=== PATIENT | male | born 1955 | race Caucasian/White ===

== ENCOUNTER 2020-09-29 06:27 | Inpatient (IN) ==
[2020-09-29] MEDS ORDERED: guaiFENesin 600 MG TABCR PO STA (07:08)
[2020-09-29] MEDS ORDERED: DEXAMETHASONE SOD INJ 10 MG/ML VIAL IV ONE (07:08)
[2020-09-29] MEDS ORDERED: ALBUT/IPRATROP 3MG/0.5MG NEB 3 ML VIAL NEB ONE (07:08)
[2020-09-29] MEDS ORDERED: ACETAMINOPHEN 1,000 MG/100 ML VIAL IV STA (07:09)
[2020-09-29] MEDS ORDERED: SODIUM CHLORIDE 0.9% 1000ML 1,000 ML IV ONE (07:10)
[2020-09-29 07:20] LABS: Eosinophils # (auto) 0.01 K/uL (0-0.5); Eosinophils % (auto) 0.3 %; Hematocrit (blood only) 31.9 % (42-52); Hemoglobin 10.4 g/dL (14.0-18.0); Lymphocytes # (auto) 0.55 K/uL (1.2-3.4); Lymphocytes % (auto) 15.9 %; Mean Corpuscular Hemoglobin 30.6 pg (25-34); Mean Corpuscular Hgb Conc 32.6 g/dL (32-36); Mean Corpuscular Volume 93.8 fL (80-100); Mean Platelet Volume 11.4 fL (7.4-10.4); Monocytes # (auto) 0.17 K/uL (0.11-0.59); Monocytes % (auto) 4.9 %; Neutrophils # (auto) 2.74 K/uL (1.4-6.5); Neutrophils % (auto) 78.9 %; Platelet Count 108 K/uL (130-400); RDW Coefficient of Variation 16.3 % (11.5-14.5); RDW Standard Deviation 56.3 fL (36.4-46.3); White Blood Count 3.47 K/uL (4.8-10.8)
[2020-09-29 07:39] LABS: D Dimer 880 ug/L FEU (0-500)
[2020-09-29 07:41] LABS: Oxygen Saturation VBG 76.3 %; pH VBG 7.46 (7.36-7.41)
[2020-09-29 07:46] LABS: Albumin Globulin Ratio 0.7 (0.9-2); Albumin Level 2.9 gm/dl (3.4-5.0); BUN Creatinine Ratio 4.4 (10-20); Bilirubin Direct 0.1 mg/dl (0-0.2); Bilirubin,Total 0.4 mg/dl (0.2-1); Calcium 7.4 mg/dl (8.5-10.1); Est GFR (African American) 6.9; Magnesium 1.7 mg/dl (1.8-2.4); Phosphorus 4.1 mg/dl (2.5-4.9); Potassium 3.4 mmol/L (3.5-5.1); Total Protein 6.9 gm/dl (6.4-8.2); Troponin I 0.088 ng/ml (0-0.045)
--- NOTE | 2020-09-29 08:01 | Emergency Department Note ---
Impression & Plan Acute respiratory failure with hypoxia, Pneumonia due to COVID-19 virus, Hypomagnesemia, Hypokalemia, End stage renal disease on dialysis ED Provider Note NAME: ERIS MCGOWAN AGE: 65 SEX: M ARRIVES VIA: Ambulance INFORMANT: Patient, ED PROVIDER(S): Raghav Ross MD CHIEF COMPLAINT: Cough PLAN: Disposition: Admit MEDICAL DECISION MAKING: The patient is a pleasant 65-year-old gentleman with a past medical history of end-stage renal disease on dialysis who presents emergency department with worsening cough after he diagnosed as Covid positive on 09/26 following the development of cough and fever. Patient did have his first Covid19 Vaccination on 09/22. The patient was noted to be hypoxic to 68% on room air on arrival in place with 100% nonrebreather. The patient denied any significant shortness of breath despite this. He denies any chest pain, nausea, vomiting, diarrhea. He reports body aches. His is also in the emergency room today with Covid- like symptoms though she has yet to be diagnosed. He denies missing any hemodialysis sessions but was recently switched from MWF schedule to TRS after his Covid19 diagnosis and is scheduled for HD tomorrow. He reports he has been on HD for approximately 2 years but still urinates several times a day. On arrival, the patient is uncomfortable, ill-appearing but no acute distress, temp 37.6, hypoxic to 68% on RA and tachypneic in mid 30s with mild work of breathing. BP stable. He appears clinically dry with cap refill 2+s. Mild shantel- oral cyanosis. Lungs with diminished BS of lower lung chamorro with scant wheeze. EKG with nonspecific ST abnormality without overt ST elevation or depression. CXR c/w multifocal PNA. WBC 3.4 with lymphopenia at 0.55. H/H 10.4/31.9 and Platelets 100K without recent for comparison. VBG unremarkable. Chemistry without acidosis though c/w h/o ESRD with Cr. 8.5 and BUN 37. Magnesium 1.7 with repletion provided. Potassium3.4. Otherwise no significant abnormalities. LFTs unremarkable. Troponin 0.088 in the setting of ESRD and hypoxia. BNP 8K, nonspecific in the setting of ESRD. Patient with improved WOB following IVF hydration, dexam ethasone, guafenesin, Duoneb. D-dimer was 880 but in the setting of ESRD. CTA considered however given patient still does urinate and symptoms can been explained by his Covid19 PNA, will defer at this time I discussed findings and concern for significant hypoxia with the patient and he did agree with plan for admission. I updated the patient's with the patient's permission. Case was discussed with Dr. Parrish, [facility] hospitalist, who will evaluate the patient for admission. Triage Nursing notes reviewed and agree them. Additional history obtained from EMs Prior medical records reviewed Vital Signs: reviewed and remarkable for hypoxia. Differential diagnosis: Reactive airway disease, pneumonia, pneumothorax, COPD, CHF, infections, cardiac ischemia, pulmonary embolism, musculoskeletal, gastrointestinal, as well as other pathologies. ER treatment provided: See below. Diagnostics interpreted by me: ECG: NSR, 89 bpm, no ectopy, nonspecific ST abnormality, no overt ST elevation or depression. Cardiac Monitoring: An order for continuous cardiac monitoring was placed and demonstrated NSR, 89 bpm, no ectopy. Laboratory studies: See below Imaging studies: XR chest 1V portable CLINICAL HISTORY: Atypical chest pain COMPARISON STUDY: No previous studies for comparison. FINDINGS: The heart is the upper limits of normal in size. There are bilateral multifocal airspace opacities suspicious for multifocal pneumonia. Correlation with Covid 19 testing is suggested. No pleural effusions are evident.[ IMPRESSION: Multifocal airspace opacity suspicious for a multifocal pneumonia. Consultation(s): Case was discussed with Dr. Parrish, [facility] hospitalist, who will evaluate the patient for admission. HPI: The patient is a pleasant 65-year-old gentleman with a past medical history of end-stage renal disease on dialysis who presents emergency department with worsening cough after he diagnosed as Covid positive on 09/26 following the development of cough and fever. Patient did have his first Covid19 Vaccination on 09/22. The patient was noted to be hypoxic to 68% on room air on arrival in place with 100% nonrebreather. The patient denied any significant shortness of breath despite this. He denies any chest pain, nausea, vomiting, diarrhea. He reports body aches. His is also in the emergency room today with Covid- like symptoms though she has yet to be diagnosed. He denies missing any hemodial ysis sessions but was recently switched from MWF schedule to TRS after his Covid19 diagnosis and is scheduled for HD tomorrow. He reports he has been on HD for approximately 2 years but still urinates several times a day. ROS: See above HPI for pertinent positives & negatives. A total of 10 systems reviewed and were otherwise negative. PAST MEDICAL HISTORY:See Below PAST SURGICAL HISTORY:See Below FAMILY HISTORY:See Below SOCIAL HISTORY:See Below HOME MEDICATIONS:See Below ALLERGIES:See Below VITALS:See Below PHYSICAL EXAMINATION: GENERAL: Awake, alert, ill-appearing, in no distress HENT: Normocephalic, atraumatic. Oropharynx with dry mucous membranes and otherwise unremarkable. EYES: Normal conjunctiva. Sclera non-icteric. NECK: Supple. No nuchal rigidity. FROM. No JVD. RESPIRATORY: Diminished BS of lower lung chamorro with scant wheeze. Tachypneic with mild increase WOB. CARDIAC: Regular rate, normal rhythm. Pulses equal. Cap refill 2+s. Mild shantel- oral cyanosis. Right upper arm AV fistula with palpable bruit. ABDOMEN: Soft, non-distended. No tenderness to palpation. No rebound or guarding. No masses. RECTAL: Deferred. MUSCULOSKELETAL: Chest examination reveals no tenderness. The back is symmetrical on inspection without obvious abnormality. There is no CVA tenderness to palpation. No joint edema. LOWER EXTREMITIES: Calves are equal size bilaterally and non-tender. No edema. No discoloration. NEURO: Normal sensorium. No sensory or motor deficits noted. SKIN: No rash or jaundice noted. ED COURSE: Critical Care: I have personally spent greater than 45 minutes of critical care time in the direct management of this patient. This includes bedside care, interpretation of diagnostic studies, and testing, discussion with consultants, patient, and family members, and other required patient management activities. This 45 minutes is in excess of all separately billable procedures. Raghav Ross MD Past Med/Surg History Medical History A-V fistula Anemia Diabetes mellitus Diabetic peripheral neuropathy Diabetic proliferative retinopathy End stage renal disease on dialysis HTN (hypertension) Liver mass Morbid obesity with BMI of 40.0-44.9, adult Secondary hyperparathyroidism of renal origin Surgical History S/P arteriovenous (AV) fistula creation RUE Family History Father , age 77 Black lung disease Mother , age 84 Myocardial infarction Social History Smoking Status: Never smoker Hx Alcohol Use: No Hx Substance Use: No Preferred Language: Macedonian Communication Ability: Effective Microsoft Architect Required: No Beliefs That Will Affect Care: None marital status: Current Living Situation: Spouse Current Living Situation Comment: lives in [facility] current occupational status: retired current occupation: worked for [employer] How many Children do You have: 1 How many Children do You have Comment: 1 son Feels Safe at Home: Yes Assistive Devices: Oxygen - Continuous Allergies Allergies Allergy/AdvReac Type Severity Reaction Status Date / Time No Known Drug Allergies Allergy Unknown Verified 09/29/20 06:51 Home Meds Home Medications Medication Instructions Recorded Confirmed amlodipine 10 mg tablet 10 mg PO DAILY tab 03/07/19 09/29/20 clonidine HCl 0.1 mg tablet 0.1 mg PO BID tab 03/07/19 09/29/20 pantoprazole 40 mg tablet,delayed 40 mg PO DAILY tab 03/07/19 09/29/20 release pen needle, diabetic 32 gauge x #10 ea 03/07/19 04/17/20" vitamin B comp no.3-folic acid 1 1 tab PO DAILY 03/07/19 09/29/20 mg-vit C 60 mg-biotin 300 mcg tablet sevelamer carbonate 800 mg tablet 800 mg PO TID 07/05/19 09/29/20 hydralazine 50 mg tablet 50 mg PO BID tab 04/17/20 09/29/20 furosemide 40 mg PO BID 09/29/20 09/29/20 Previous Rx's Medication Instructions Recorded Tresiba FlexTouch U-100 100 14 unit SQ DAILY #15 ml NS 07/01/20 unit/mL (3 mL) subcutaneous pen Results & Data (ED) Vital Signs Vital Signs - 24 hr 09/29/20 06:34 09/29/20 06:36 09/29/20 06:38 Temperature 37.6 C H Temperature Source Oral Pulse Rate 89 Pulse Rate [Right Finger] Pulse Rate from SpO2 Sensor 89 Respiratory Rate 20 30 H 32 H Respiratory Effort / Characteristics Non-Labored Respiratory Depth Shallow Blood Pressure 147/68 H Blood Pressure Mean 94 Pulse Oximetry 86 L 88 L 93 Oxygen Delivery Method Room Air Nasal Cannula Non-rebreather Oxygen Flow Rate 4 5 15 Sepsis Recent Fever Within 48 Hours No Sepsis New/Unexplained Change in Mental Status No Sepsis Action Taken by Nursing No Action Required 09/29/20 06:40 09/29/20 06:45 09/29/20 07:00 Temperature Temperature Source Pulse Rate 88 86 89 Pulse Rate [Right Finger] Pulse Rate from SpO2 Sensor 88 86 89 Respiratory Rate 33 H 28 H 36 H Respiratory Effort / Characteristics Respiratory Depth Blood Pressure 149/69 H 157/68 H 144/77 H Blood Pressure Mean 95 97 99 Pulse Oximetry 93 95 94 Oxygen Delivery Method Non-rebreather Non-rebreather Non-rebreather Oxygen Flow Rate 15 15 15 Sepsis Recent Fever Within 48 Hours Sepsis New/Unexplained Change in Mental Status Sepsis Action Taken by Nursing 09/29/20 07:08 09/29/20 07:15 09/29/20 07:31 Temperature Temperature Source Pulse Rate 86 85 Pulse Rate [Right Finger] 88 Pulse Rate from SpO2 Sensor 85 Respiratory Rate 30 H 28 H 20 Respiratory Effort / Characteristics Non-Labored Spontaneous Respiratory Depth Blood Pressure 142/74 H Blood Pressure Mean 96 Pulse Oximetry 98 96 97 Oxygen Delivery Method Non-rebreather Non-rebreather Non-rebreather Oxygen Flow Rate 15 15 15 Sepsis Recent Fever Within 48 Hours Sepsis New/Unexplained Change in Mental Status Sepsis Action Taken by Nursing 09/29/20 07:46 09/29/20 08:00 09/29/20 08:15 Temperature Temperature Source Pulse Rate 92 H 100 H 105 H Pulse Rate [Right Finger] Pulse Rate from SpO2 Sensor 93 H 102 H 106 H Respiratory Rate 34 H 31 H 26 H Respiratory Effort / Characteristics Respiratory Depth Blood Pressure 148/90 H 147/70 H 134/55 L Blood Pressure Mean 109 95 81 Pulse Oximetry 92 94 93 Oxygen Delivery Method Nebulizer Nebulizer Nebulizer Oxygen Flow Rate Sepsis Recent Fever Within 48 Hours Sepsis New/Unexplained Change in Mental Status Sepsis Action Taken by Nursing 09/29/20 08:30 09/29/20 08:45 09/29/20 09:00 Temperature Temperature Source Pulse Rate 109 H 109 H 107 H Pulse Rate [Right Finger] Pulse Rate from SpO2 Sensor 109 H 119 H 107 H Respiratory Rate 29 H 38 H 22 Respiratory Effort / Characteristics Respiratory Depth Blood Pressure 126/63 117/52 L 103/55 L Blood Pressure Mean 84 73 71 Pulse Oximetry 89 L 90 88 L Oxygen Delivery Method Oxymask Oxymask Oxymask Oxygen Flow Rate 10 10 10 Sepsis Recent Fever Within 48 Hours Sepsis New/Unexplained Change in Mental Status Sepsis Action Taken by Nursing 09/29/20 09:15 09/29/20 09:30 09/29/20 09:45 Temperature Temperature Source Pulse Rate 104 H 106 H 106 H Pulse Rate [Right Finger] Pulse Rate from SpO2 Sensor 104 H 106 H 106 H Respiratory Rate 23 28 H 27 H Respiratory Effort / Characteristics Respiratory Depth Blood Pressure 101/47 L 117/48 L 119/52 L Blood Pressure Mean 65 71 74 Pulse Oximetry 93 92 89 L Oxygen Delivery Method Oxymask Oxymask Oxymask Oxygen Flow Rate 10 10 10 Sepsis Recent Fever Within 48 Hours Sepsis New/Unexplained Change in Mental Status Sepsis Action Taken by Nursing 09/29/20 10:00 Temperature Temperature Source Pulse Rate 103 H Pulse Rate [Right Finger] Pulse Rate from SpO2 Sensor 103 H Respiratory Rate 24 Respiratory Effort / Characteristics Respiratory Depth Blood Pressure 110/52 L Blood Pressure Mean 71 Pulse Oximetry 88 L Oxygen Delivery Method Oxymask Oxygen Flow Rate 10 Sepsis Recent Fever Within 48 Hours Sepsis New/Unexplained Change in Mental Status Sepsis Action Taken by Nursing Laboratory Data Attestation: I reviewed the patient's lab results. Result diagrams: 09/29/20 06:40 09/29/20 06:40 Lab Results 09/29/20 09/29/20 09/29/20 Range/Units 06:40 06:40 06:40 WBC 3.47 L (4.8-10.8) K/uL RBC 3.40 L (4.7-6.1) M/uL Hgb 10.4 L (14.0-18.0) g/dL Hct 31.9 L (42-52) % MCV 93.8 (80-100) fL MCH 30.6 (25-34) pg MCHC 32.6 (32-36) g/dL RDW Std Deviation 56.3 H (36.4-46.3) fL RDW Coeff of Anny 16.3 H (11.5-14.5) % Plt Count 108 L (130-400) K/uL MPV 11.4 H (7.4-10.4) fL Immature Gran % (Auto) 0.0 % Neut % (Auto) 78.9 % Lymph % (Auto) 15.9 % [place] % (Auto) 4.9 % Eos % (Auto) 0.3 % Baso % (Auto) 0.0 % Neut # (Auto) 2.74 (1.4-6.5) K/uL Lymph # (Auto) 0.55 L (1.2-3.4) K/uL [place] # (Auto) 0.17 (0.11-0.59) K/uL Eos # (Auto) 0.01 (0-0.5) K/uL Baso # (Auto) 0.00 (0-0.2) K/uL Immature Gran # (Auto) 0.00 (0.00-0.02) K/uL D-Dimer 880 H* (0-500) ug/L FEU VBG pH (7.36-7.41) VBG pCO2 (38-50) mmHg VBG pO2 mmHg VBG HCO3 mmol/L VBG O2 Saturation % VBG Base Excess mEq/L Barometric Pressure mm/Hg Sodium 135 L (136-145) mmol/L Potassium 3.4 L (3.5-5.1) mmol/L Chloride 94 L (98-107) mmol/L Carbon Dioxide 27 (21-32) mmol/L Anion Gap 14.0 H (3-11) BUN 37 H (7-18) mg/dl Creatinine 8.50 H* (0.6-1.4) mg/dl Est Cr Clr Drug Dosing 11.0 ml/min Est GFR ( Amer) 6.9 Est GFR (Non-Af Amer) 6.0 BUN/Creatinine Ratio 4.4 L (10-20) Glucose 208 H (70-99) mg/dl Calcium 7.4 L (8.5-10.1) mg/dl Phosphorus 4.1 (2.5-4.9) mg/dl Magnesium 1.7 L (1.8-2.4) mg/dl Total Bilirubin 0.4 (0.2-1) mg/dl Direct Bilirubin 0.1 (0-0.2) mg/dl AST 35 (15-37) U/L ALT 22 (12-78) U/L Alkaline Phosphatase 80 (45-117) U/L Total Creatine Kinase 278 (39-308) U/L Troponin I 0.088 H* (0-0.045) ng/ml NT-Pro-B Natriuret Pep 8318 H (0-900) pg/ml Total Protein 6.9 (6.4-8.2) gm/dl Albumin 2.9 L (3.4-5.0) gm/dl Globulin 4.0 (2.5-4.0) gm/dl Albumin/Globulin Ratio 0.7 L (0.9-2) Lipase 128 (73-393) U/L Procalcitonin 09/29/20 09/29/20 Range/Units 07:25 07:29 WBC (4.8-10.8) K/uL RBC (4.7-6.1) M/uL Hgb (14.0-18.0) g/dL Hct (42-52) % MCV (80-100) fL MCH (25-34) pg MCHC (32-36) g/dL RDW Std Deviation (36.4-46.3) fL RDW Coeff of Anny (11.5-14.5) % Plt Count (130-400) K/uL MPV (7.4-10.4) fL Immature Gran % (Auto) % Neut % (Auto) % Lymph % (Auto) % [place] % (Auto) % Eos % (Auto) % Baso % (Auto) % Neut # (Auto) (1.4-6.5) K/uL Lymph # (Auto) (1.2-3.4) K/uL [place] # (Auto) (0.11-0.59) K/uL Eos # (Auto) (0-0.5) K/uL Baso # (Auto) (0-0.2) K/uL Immature Gran # (Auto) (0.00-0.02) K/uL D-Dimer (0-500) ug/L FEU VBG pH 7.46 H (7.36-7.41) VBG pCO2 43 (38-50) mmHg VBG pO2 41 mmHg VBG HCO3 29 mmol/L VBG O2 Saturation 76.3 % VBG Base Excess 5.0 mEq/L Barometric Pressure 736.5 mm/Hg Sodium (136-145) mmol/L Potassium (3.5-5.1) mmol/L Chloride (98-107) mmol/L Carbon Dioxide (21-32) mmol/L Anion Gap (3-11) BUN (7-18) mg/dl Creatinine (0.6-1.4) mg/dl Est Cr Clr Drug Dosing ml/min Est GFR ( Amer) Est GFR (Non-Af Amer) BUN/Creatinine Ratio (10-20) Glucose (70-99) mg/dl Calcium (8.5-10.1) mg/dl Phosphorus (2.5-4.9) mg/dl Magnesium (1.8-2.4) mg/dl Total Bilirubin (0.2-1) mg/dl Direct Bilirubin (0-0.2) mg/dl AST (15-37) U/L ALT (12-78) U/L Alkaline Phosphatase (45-117) U/L Total Creatine Kinase (39-308) U/L Troponin I (0-0.045) ng/ml NT-Pro-B Natriuret Pep (0-900) pg/ml Total Protein (6.4-8.2) gm/dl Albumin (3.4-5.0) gm/dl Globulin (2.5-4.0) gm/dl Albumin/Globulin Ratio (0.9-2) Lipase (73-393) U/L Procalcitonin Cancelled Administered Medications Albuterol (Albuterol Hfa 8 Gm Inhaler) 1 puffs INH QIDR [facility] Stop: 10/29/20 18:59 Last Admin: 09/29/20 19:17 Dose: 1 puffs Documented by: [id number] Admin: 09/29/20 15:57 Dose: 1 puffs Documented by: [id number] Doxycycline Hyclate (Doxycycline Hyclate 100 Mg Cap) 100 mg PO BID [facility] Stop: 10/06/20 13:59 Last Admin: 09/29/20 14:49 Dose: 100 mg Documented by: [id number] Heparin Sodium (Porcine) (Heparin Sod 5,000 Unit/0.5 Ml Vial) 7,500 units SQ Q8 [facility] Stop: 10/29/20 13:59 Last Admin: 09/29/20 14:51 Dose: 7,500 units Documented by: [id number] Ceftriaxone Sodium 2,000 mg/ (Dextrose) 70 mls @ 100 mls/hr IV DAILY@1400 [facility]XIE; Protocol Stop: 10/06/20 13:59 Last Infusion: 09/29/20 16:41 Dose: 0 mls/hr Documented by: [id number] Admin: 09/29/20 15:45 Dose: 100 mls/hr Documented by: [id number] Insulin Human Regular 250 (units/ Sodium Chloride) 250 mls @ 4.8 mls/hr IV .Q24H TRIXIE; Protocol Stop: 10/29/20 16:59 Last Titration: 09/29/20 20:02 Dose: 5.8 units/hr, 5.8 mls/hr Documented by: [id number] Cosigned by: [id number] Titration: 09/29/20 19:10 Dose: 4.8 units/hr, 4.8 mls/hr Documented by: [id number] Cosigned by: [id number] Titration: 09/29/20 19:04 Dose: 4 units/hr, 4 mls/hr Documented by: [id number] Cosigned by: [id number] Titration: 09/29/20 18:09 Dose: 4 units/hr, 4 mls/hr Documented by: [id number] Cosigned by: [id number] Admin: 09/29/20 17:03 Dose: 3.3 units/hr, 3.3 mls/hr Documented by: [id number] Cosigned by: [id number] Insulin Aspart (Insulin Aspart 100 Units/Ml 3 Ml Pen) 0 units SC ACHS [facility] Stop: 10/29/20 16:29 Last Admin: 09/29/20 17:51 Dose: Not Given Documented by: [id number] Ipratropium Mermentau (Ipratropium [place] Hfa Inhaler) 1 puffs INH QIDR [facility] Stop: 10/29/20 18:59 Last Admin: 09/29/20 19:16 Dose: 1 puffs Documented by: [id number] Admin: 09/29/20 15:58 Dose: 1 puffs Documented by: [id number] Sevelamer HCl (Sevelamer Hcl 800 Mg Tablet) 1,600 mg PO AC [facility] Stop: 10/29/20 13:19 Last Admin: 09/29/20 17:53 Dose: 1,600 mg Documented by: [id number] Admin: 09/29/20 13:19 Dose: Not Given Documented by: [id number] Discontinued Medications Acetaminophen (Acetaminophen 325 Mg Tab) 650 mg PO PRE-TREAT ONE Stop: 09/29/20 11:26 Last Admin: 09/29/20 14:47 Dose: 650 mg Documented by: [id number] Albuterol (Albut/Ipratrop 3mg/0.5mg Neb 3 Ml Vial) 12 ml NEB ONE ONE Stop: 09/29/20 07:09 Last Admin: 09/29/20 07:26 Dose: 12 ml Documented by: [id number] Albuterol (Albut/Ipratrop 3mg/0.5mg Neb 3 Ml Vial) 3 ml NEB QIDR [facility] Stop: 10/29/20 11:29 Last Admin: 09/29/20 15:17 Dose: Not Given Documented by: [id number] Admin: 09/29/20 11:47 Dose: 3 ml Documented by: [id number] Dexamethasone (Dexamethasone Sod Inj 10 Mg/Ml Vial) 10 mg IV NOW ONE Stop: 09/29/20 07:09 Last Admin: 09/29/20 07:30 Dose: 10 mg Documented by: [id number] Guaifenesin (Guaifenesin 600 Mg Tabcr) 600 mg PO NOW STA Stop: 09/29/20 07:09 Last Admin: 09/29/20 07:25 Dose: 600 mg Documented by: [id number] Acetaminophen (Ofirmev) 1,000 mg in 100 mls @ 400 mls/hr IV NOW STA Stop: 09/29/20 07:23 Last Infusion: 09/29/20 07:56 Dose: 0 mls/hr Documented by: [id number] Admin: 09/29/20 07:31 Dose: 400 mls/hr Documented by: [id number] Sodium Chloride (Nss 1000ml) 1,000 mls @ 999 mls/hr IV .Q1H1M ONE Stop: 09/29/20 08:10 Last Infusion: 09/29/20 08:12 Dose: 0 mls/hr Documented by: [id number] Admin: 09/29/20 07:30 Dose: 999 mls/hr Documented by: [id number] Magnesium Sulfate/Dextrose (Magnesium Sulfate / D5w) 1 gm in 100 mls @ 100 mls/hr IV NOW STA Stop: 09/29/20 09:35 Last Infusion: 09/29/20 10:56 Dose: 0 mls/hr Documented by: [id number] Admin: 09/29/20 10:20 Dose: 100 mls/hr Documented by: [id number] Sodium Chloride (Nss) 250 mls @ 999 mls/hr IV .Q16M ONE Stop: 09/29/20 10:31 Last Infusion: 09/29/20 10:56 Dose: 0 mls/hr Documented by: [id number] Admin: 09/29/20 10:35 Dose: 999 mls/hr Documented by: [id number] Insulin Human Regular 3.5 (units/ Syringe) 3.5 mls @ 30 mls/min IV NOW ONE Stop: 09/29/20 17:01 Last Admin: 09/29/20 17:03 Dose: 30 mls/min Documented by: [id number] Cosigned by: [id number] Insulin Aspart (Insulin Aspart 100 Units/Ml 3 Ml Pen) 0 units SC ACHS [facility] Stop: 10/29/20 11:29 Last Admin: 09/29/20 12:16 Dose: 13 units Documented by: [id number] Cosigned by: [id number] Insulin Glargine (Insulin Glargine Solostar 100 Units/Ml 3 Ml Pen) 15 units SC BID [facility] Stop: 10/29/20 11:44 Last Admin: 09/29/20 12:17 Dose: 15 units Documented by: [id number] Cosigned by: [id number] Miscellaneous (Insulin Protocol Goal Range ) 1 ea N/A ONE ONE Stop: 09/29/20 16:00 Last Admin: 09/29/20 17:11 Dose: 1 ea Documented by: [id number] Miscellaneous (Severe Stress Level ) 1 ea N/A ONE ONE Stop: 09/29/20 16:00 Last Admin: 09/29/20 17:11 Dose: 1 ea Documented by: [id number] Miscellaneous Information (Dc All Previously Ordered Diabetes Meds) 1 ea N/A ONE ONE Stop: 09/29/20 16:00 Last Admin: 09/29/20 17:13 Dose: Not Given Documented by: [id number] Potassium Chloride (Potassium Chloride Crtab 20 Meq Tabcr) 20 meq PO NOW STA Stop: 09/29/20 09:54 Last Admin: 09/29/20 10:25 Dose: 20 meq Documented by: [id number] Discharge Plan Visit Data Chief Complaint: Cough ED Provider: Raghav Ross Discharge Problem: Acute respiratory failure with hypoxia, Pneumonia due to COVID-19 virus, Hypomagnesemia, Hypokalemia, End stage renal disease on dialysis Patient Disposition: Admitted As Inpatient Discharge Instructions Interventions: ED Discharge Assessment Last Done: 09/29/20 11:01
--- NOTE | 2020-09-29 08:15 | XRay Report ---
XR chest 1V portable CLINICAL HISTORY: Atypical chest pain COMPARISON STUDY: No previous studies for comparison. FINDINGS: The heart is the upper limits of normal in size. There are bilateral multifocal airspace op acities suspicious for multifocal pneumonia. Correlation with Covid 19 testing is suggested. No pleur al effusions are evident.[ IMPRESSION: Multifocal airspace opacity suspicious for a multifocal pneumonia. ACT 112: Negative or not required by law. Electronically signed by: Roc Gonzalez M.D. 09/29/2020 8:14 AM
[2020-09-29] MEDS ORDERED: MAGNESIUM SULFATE / D5W 1 GM/100 ML BAG IV STA (08:36)
[2020-09-29] MEDS ORDERED: POTASSIUM CHLORIDE CRTAB 20 MEQ TABCR PO STA (09:53)
--- NOTE | 2020-09-29 10:14 | History & Physical Report ---
Date of Service September 29, 2020 Assessment & Plan (1) Pneumonia due to COVID-19 virus: Severe disease. s/p decadron x 10mg in ER. Complete decadron course - 9 additional days of 6mg qd starting tomorrow. He is a convalescent plasma candidate. He is about 5/6 days into his illness. He did receive 1 dose of the COVID-19 vaccine but unfortunately is likely not producing an antibody response to the vaccine for another week or so. Risks/benefits of plasma discussed. FDA information sheet given. Consent obtained. T/Screen. Then Tx plasma when available from blood bank. Unfortunately he is NOT a candidate for remdesivir given his ESRD. Pulm toilet. Self-proning encouraged. Flutter valve. Bronchodilators. (2) Acute respiratory failure with hypoxia: 2nd to severe COVID-19 pneumonia. His procalcitonin did come back elevated. Due to slight chance that he has bacterial superinfection - start rocephin 2gm daily and doxy 100mg BID. Follow cultures. This afternoon, after admission to COVID unit, patient experienced escalating O2 requirements. Repeat VBG with mildly elevated pCO2. I spoke with Dr Montoya - difficult to know if he experienced some volume overload from the plasma. Or, more likely, this is worsening hypoxia from COVID. Low threshold for BIPAP if any worsening through the night. (3) Morbid obesity with BMI of 40.0-44.9, adult: (4) Pancytopenia: Likely 2nd to bone marrow suppression from COVID-19. CBC in am. CKD/ESRD likely contributes to anemia as well. (5) Diabetes mellitus: Due to steroid initiation for COVID-19 his BSGs are markedly elevated. Hold basal-bolus insulin SC. Start insulin drip, severe stress, per protocol. Check a1c. (6) HTN (hypertension): BPs soft at time of admission, likely volume depletion in setting of COVID-19 and recent anorexia. Did receive NS in ER. Hold lasix. Hold hydralazine. Hold amlodipine. Cont clonidine to prevent rebound. (7) End stage renal disease on dialysis: M/W/F schedule as outpatient - dialyzes in [place]. Primary citrus picker is Dr Choe. Spoke several times with Dr Montoya. Given escalating O2 requirements following plasma infusion we elected to performed urgent dialysis in the event he was experiencing pulm edema in the setting of plasma transfusion. Appreciate Dr Montoya's assistance. 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 (8) Hypokalemia: 20meq KCL x 1 repeat BMP am (9) Hypomagnesemia: Mag sulfate 1gm x 1 repeat mag in am 2nd to poor PO intake and diarrhea (10) DVT prophylaxis: given high risk of VTE w/ COVID- heparin 7500 units TID extensively updated by phone this evening History of Present Illness Chief Complaint: COVID-19 infection Primary Care Provider: Tomy Cervantes 65yo male with ESRD on HD x 2 years - secondary to long-standing T2DM with nephropathy - HTN, obesity, and T2DM presents with ongoing COVID-19 infection x 5-6 days. Patient states he was in his usual state of health up until coming down with COVID. On 09/22/2020 the patient received his first dose of COVID-19 vaccine. The day following the vaccination he developed fever to 101, diarrhea, fatigue, anorexia, and mild dry cough. His got sick with similar symptoms either just prior to him or about the same time but she did NOT receive the vaccine. The patient continued to feel poorly all last week. Temperatures continued to range 99-100 degrees. Dry cough remained, anorexia persisted, fatigue/malaise continued, and he also had myalgias. Has never had chest pain, abdominal pain, nausea, emesis, headache, ear pain, sore throat, nasal congestion, or loss of taste/smell. On Tuesday, 09/26, he went to an urgent care in [place] for COVID-19 testing. He found out later that night he was positive for COVID-19. He typically dialyzes on Tuesday/Tue/Tuesday but due to COVID-19 illness he dialyzed in [place] on Tuesday. He admits to drinking very little since his illness began. In the ER he was hypoxic to the 60s in room air. O2 sats improved to low 90s with oxymask. He amazingly did not have dyspnea during my visit. He admits to feeling very anxious about having COVID and asked several times "if he was going to make it." Allergies Allergy/AdvReac Type Severity Reaction Status Date / Time No Known Drug Allergies Allergy Unknown Verified 09/29/20 06:51 Home Medications Medication Instructions Recorded Confirmed Type amlodipine 10 mg tablet 10 mg PO DAILY tab 03/07/19 09/29/20 History clonidine HCl 0.1 mg tablet 0.1 mg PO BID tab 03/07/19 09/29/20 History pantoprazole 40 mg tablet,delayed 40 mg PO DAILY tab 03/07/19 09/29/20 History release pen needle, diabetic 32 gauge x #10 ea 03/07/19 04/17/20 History " vitamin B comp no.3-folic acid 1 1 tab PO DAILY 03/07/19 09/29/20 History mg-vit C 60 mg-biotin 300 mcg tablet sevelamer carbonate 800 mg tablet 800 mg PO TID 07/05/19 09/29/20 History hydralazine 50 mg tablet 50 mg PO BID tab 04/17/20 09/29/20 History Tresiba FlexTouch U-100 100 14 unit SQ DAILY #15 ml NS 07/01/20 09/29/20 Rx unit/mL (3 mL) subcutaneous pen furosemide 40 mg PO BID 09/29/20 09/29/20 History Past Med/Surg History Medical History A-V fistula Anemia Diabetes mellitus Diabetic peripheral neuropathy Diabetic proliferative retinopathy End stage renal disease on dialysis HTN (hypertension) Liver mass Morbid obesity with BMI of 40.0-44.9, adult Secondary hyperparathyroidism of renal origin Surgical History S/P arteriovenous (AV) fistula creation RUE Family History Father , age 77 Black lung disease Mother , age 84 Myocardial infarction Social History Smoking Status: Never smoker Hx Alcohol Use: No Hx Substance Use: No Preferred Language: Georgian Communication Ability: Effective Associate Trainer Required: No Beliefs That Will Affect Care: None marital status: Current Living Situation: Spouse Current Living Situation Comment: lives in [facility] current occupational status: retired current occupation: worked for [employer] How many Children do You have: 1 How many Children do You have Comment: 1 son Feels Safe at Home: Yes Assistive Devices: Oxygen - Continuous Review of Systems Constitutional: + fever, + chills, + body aches, + fatigue and + anorexia; no weight loss and no weight gain Eyes: no worsening vision Ear, Nose, Mouth, Throat: no ear pain, no nasal congestion and no sore throat Respiratory: + cough and + wheezing; no dyspnea Cardiovascular: no chest pain, no orthopnea and no edema Gastrointestinal: + diarrhea/loose stools; no abdominal pain, no nausea, no vomiting and no blood in stools Genitourinary: + problem reported (makes urine in small amounts 2-3x's/day) Musculoskeletal: + body aches; no joint pain Integumentary: no rash Neurologic: + loss of sensation (hands/feet (DM neuropathy)) Psychiatric: + anxiety Endocrine: BSGs - elevated Hematologic / Lymphatic: no easy bleeding Physical Exam Constitutional: + acute distress (tachypneic) and + morbidly obese; no altered mental status Eyes: + anicteric sclerae and PERRL ENMT: Mouth: + dry oral mucous membranes Neck: trachea midline, no thyromegaly Respiratory: + respiratory distress, + cough and + tachypneic Auscultation: + crackles (scattered in various lobes) and + wheezes (expiratory b/l) Cardiovascular: Rate/Rhythm: regular rhythm and + tachycardic Heart Sounds: normal S1 and normal S2; no murmur Vessels: posterior tibial pulses present and dorsalis pedis pulses present; no JVD Extremities: + AV fistula (RUE - with bruit); no edema Gastrointestinal (Abdomen): Inspection/Auscultation: + abdomen distended (states this is chronic ) Percussion/Palpation: abdomen soft and + hernia (umbilical - reducible ); abdomen nontender and no hepatosplenomegaly Musculoskeletal: no cyanosis or clubbing, extremities motor strength 5/5 Skin: no rashes, warm and dry Neurologic: deep tendon reflexes 2+ bilaterally and moves all extremities; no focal motor deficits Psychiatric: Orientation: alert and oriented x 3 Affect: + anxious affect Lymphatic: no cervical lymphadenopathy Results & Data Results & Data ([facility]) Vital Signs (Past 12 Hours) Vital Signs Temp Pulse Pulse Resp BP Pulse Ox 09/29/20 10:00 103 H 24 110/52 L 88 L 09/29/20 09:45 106 H 27 H 119/52 L 89 L 09/29/20 09:30 106 H 28 H 117/48 L 92 09/29/20 09:15 104 H 23 101/47 L 93 09/29/20 09:00 107 H 22 103/55 L 88 L 09/29/20 08:45 109 H 38 H 117/52 L 90 09/29/20 08:30 109 H 29 H 126/63 89 L 09/29/20 08:15 105 H 26 H 134/55 L 93 09/29/20 08:00 100 H 31 H 147/70 H 94 09/29/20 07:46 92 H 34 H 148/90 H 92 09/29/20 07:31 88 20 97 09/29/20 07:15 85 28 H 142/74 H 96 09/29/20 07:08 86 30 H 98 09/29/20 07:00 89 36 H 144/77 H 94 09/29/20 06:45 86 28 H 157/68 H 95 09/29/20 06:40 88 33 H 149/69 H 93 09/29/20 06:38 32 H 93 09/29/20 06:36 30 H 88 L 09/29/20 06:34 37.6 C H 89 20 147/68 H 86 L Laboratory Results Laboratory Results - last 24 hr 09/29/20 09/29/20 09/29/20 06:40 06:40 06:40 WBC 3.47 L RBC 3.40 L Hgb 10.4 L Hct 31.9 L MCV 93.8 MCH 30.6 MCHC 32.6 RDW Std Deviation 56.3 H RDW Coeff of Anny 16.3 H Plt Count 108 L MPV 11.4 H Immature Gran % (Auto) 0.0 Neut % (Auto) 78.9 Lymph % (Auto) 15.9 [place] % (Auto) 4.9 Eos % (Auto) 0.3 Baso % (Auto) 0.0 Neut # (Auto) 2.74 Lymph # (Auto) 0.55 L [place] # (Auto) 0.17 Eos # (Auto) 0.01 Baso # (Auto) 0.00 Immature Gran # (Auto) 0.00 D-Dimer 880 H* VBG pH VBG pCO2 VBG pO2 VBG HCO3 VBG O2 Saturation VBG Base Excess Barometric Pressure Sodium 135 L Potassium 3.4 L Chloride 94 L Carbon Dioxide 27 Anion Gap 14.0 H BUN 37 H Creatinine 8.50 H* Est Cr Clr Drug Dosing 11.0 Est GFR ( Amer) 6.9 Est GFR (Non-Af Amer) 6.0 BUN/Creatinine Ratio 4.4 L Glucose 208 H Calcium 7.4 L Phosphorus 4.1 Magnesium 1.7 L Total Bilirubin 0.4 Direct Bilirubin 0.1 AST 35 ALT 22 Alkaline Phosphatase 80 Total Creatine Kinase 278 Troponin I 0.088 H* NT-Pro-B Natriuret Pep 8318 H Total Protein 6.9 Albumin 2.9 L Globulin 4.0 Albumin/Globulin Ratio 0.7 L Lipase 128 Procalcitonin Blood Type Antibody Screen 09/29/20 09/29/20 09/29/20 07:25 07:29 10:16 WBC RBC Hgb Hct MCV MCH MCHC RDW Std Deviation RDW Coeff of Anny Plt Count MPV Immature Gran % (Auto) Neut % (Auto) Lymph % (Auto) [place] % (Auto) Eos % (Auto) Baso % (Auto) Neut # (Auto) Lymph # (Auto) [place] # (Auto) Eos # (Auto) Baso # (Auto) Immature Gran # (Auto) D-Dimer VBG pH 7.46 H VBG pCO2 43 VBG pO2 41 VBG HCO3 29 VBG O2 Saturation 76.3 VBG Base Excess 5.0 Barometric Pressure 736.5 Sodium Potassium Chloride Carbon Dioxide Anion Gap BUN Creatinine Est Cr Clr Drug Dosing Est GFR ( Amer) Est GFR (Non-Af Amer) BUN/Creatinine Ratio Glucose Calcium Phosphorus Magnesium Total Bilirubin Direct Bilirubin AST ALT Alkaline Phosphatase Total Creatine Kinase Troponin I NT-Pro-B Natriuret Pep Total Protein Albumin Globulin Albumin/Globulin Ratio Lipase Procalcitonin Pending Blood Type Pending Antibody Screen Pending Code Status & VTE Plan Code Status full code VTE Prophylaxis Plan VTE Prophylaxis will be ordered: Yes PG Care Time/CCT Total # of Minutes Spent Total Time Spent with Patient: Total time spent is greater than 50% in coordination of care (as documented) at patient's floor/unit and/or counseling patient: Coding Level of Care Code 85529 Initial Inpt Care Lvl 3 Diagnoses Pneumonia due to COVID-19 virus U07.1; J12.82 Acute respiratory failure with hypoxia J96.01 Morbid obesity with BMI of 40.0-44.9, adult E66.01; Z68.41 Pancytopenia D61.818 Diabetes mellitus E11.9 HTN (hypertension) I10 End stage renal disease on dialysis N18.6; Z99.2 Hypokalemia E87.6 Hypomagnesemia E83.42 DVT prophylaxis Z29.9
[2020-09-29] MEDS ORDERED: SODIUM CHLORIDE 0.9% 250 ML IV ONE (10:16)
[2020-09-29] MEDS ORDERED: ACETAMINOPHEN 325 MG TAB PO ONE (11:25)
[2020-09-29] MEDS ORDERED: INSULIN ASPART 100 UNITS/ML 3 ML PEN SC SCH (11:30)
[2020-09-29] MEDS ORDERED: BENZONATATE 100 MG CAPSULE PO PRN (11:30)
[2020-09-29] MEDS ORDERED: ONDANSETRON INJ 2 MG/ML 2 ML VIAL IV PRN (11:30)
--- NOTE | 2020-09-29 11:40 | Nephrology Consultation ---
Date of Consultation September 29, 2020 Assessment & Plan (1) End stage renal disease on dialysis: Records from [facility] reviewed. Patient discussed with dialysis nursing staff. Volume status and electrolytes are acceptable. Will coordinate HD tomorrow via TTS schedule. No emergent indication for treatment today. Plasma may be given off HD. Medications are appropriately dosed for kidney function. Document I/O's and daily AM weight. Repeat metabolic profile tomrorow AM prior to HD. Typical Rx: 3.5 hrs @ Qb 450 on 180 optiflux. EDW 89.5. Current weight below EDW. Oral KCl replacement 20 mEq to be provided for hypokalemia. (2) Pneumonia due to COVID-19 virus: Plan of care discussed with Dr. Dacosta. Conv plasma to be given in addition to dexamethasone. Remdesivir deferred due to kidney dysfunction. (3) Anemia: Chronic, stable. Hgb >10. Maintained on Micera as outpatient. No changes at this time. History of Present Illness Reason for Consultation: ESRD on HD Requesting Physician: Benji Parrish Attending Physician: Benji Parrish History of Present Illness [facility] [place] [address] Mr. Eliezer Bell is a 65 year-old male with ESRD attributed to DKD and a history of ATN. He is on maintenance hemodialysis at [facility] under the care of Dr. Choe. Most recent HD treatment completed on Tuesday at [facility]. No recent complications with HD. Rx is 3 x per week, 3.5 hrs @ qb 450 on a 180 optiflux. EDW 89.5 kg. Eliezer left dialysis at his dry weight on Tuesday. He dialyzes via a RUE AVF+G placed by Dr. Gaviria. A revision procedure was completed in June 2020. Medical history is also notable for diabetes mellitus, obesity, and hypertension. Eliezer presented to the hospital today with progressive respiratory symptoms in the setting of known COVID+. Eliezer and his developed symptoms of fatigue, weakness, diarrhea, and fevers within 24 hours of his first dose of the COVID vaccine. His was not vaccinated. Appetite has been poor and Eliezer has experienced progressive weakness. Eliezer denies any chest pains or palpitations. Allergies Allergy/AdvReac Type Severity Reaction Status Date / Time No Known Drug Allergies Allergy Unknown Verified 09/29/20 06:51 Home Medications Medication Instructions Recorded Confirmed Type amlodipine 10 mg tablet 10 mg PO DAILY tab 03/07/19 09/29/20 History clonidine HCl 0.1 mg tablet 0.1 mg PO BID tab 03/07/19 09/29/20 History pantoprazole 40 mg tablet,delayed 40 mg PO DAILY tab 03/07/19 09/29/20 History release pen needle, diabetic 32 gauge x #10 ea 03/07/19 04/17/20 History " vitamin B comp no.3-folic acid 1 1 tab PO DAILY 03/07/19 09/29/20 History mg-vit C 60 mg-biotin 300 mcg tablet sevelamer carbonate 800 mg tablet 800 mg PO TID 07/05/19 09/29/20 History hydralazine 50 mg tablet 50 mg PO BID tab 04/17/20 09/29/20 History Tresiba FlexTouch U-100 100 14 unit SQ DAILY #15 ml NS 07/01/20 09/29/20 Rx unit/mL (3 mL) subcutaneous pen furosemide 40 mg PO BID 09/29/20 09/29/20 History Patient History Medical History A-V fistula Anemia Diabetes mellitus Diabetic peripheral neuropathy Diabetic proliferative retinopathy End stage renal disease on dialysis HTN (hypertension) Liver mass Morbid obesity with BMI of 40.0-44.9, adult Secondary hyperparathyroidism of renal origin Surgical History S/P arteriovenous (AV) fistula creation RUE Family History Father , age 77 Black lung disease Mother , age 84 Myocardial infarction Social History Smoking Status: Never smoker Hx Alcohol Use: No Hx Substance Use: No Preferred Language: Filipino Communication Ability: Effective Electrician Control Equipment Required: No Beliefs That Will Affect Care: None marital status: Current Living Situation: Spouse Current Living Situation Comment: lives in [facility] current occupational status: retired current occupation: worked for [employer] How many Children do You have: 1 How many Children do You have Comment: 1 son Feels Safe at Home: Yes Safety Concerns: Feels Safe At This Time Assistive Devices: Oxygen - Continuous Review of Systems Review of Systems: All systems reviewed & are unremarkable except as noted in HPI & below Constitutional: + fever, + fatigue, + weakness and + anorexia Eyes: no problem reported Ear, Nose, Mouth, Throat: + dry mouth; no sore throat and no dysphagia Respiratory: + cough and + dyspnea; no pain on inspiration Cardiovascular: no chest pain, no palpitations and no edema Gastrointestinal: + nausea; no problem reported Genitourinary: no problem reported Musculoskeletal: + stiffness and + body aches Integumentary: no problem reported Neurologic: no problem reported Physical Exam Constitutional: well developed, + ill appearing and + obese Eyes: + anicteric sclerae; no corneal abnormality ENMT: Mouth: no oral mucosal abnormality and oral mucous membranes not dry Neck: normal visual inspection and trachea midline Respiratory: + tachypneic Auscultation: + rhonchi Cardiovascular: Rate/Rhythm: + tachycardic Heart Sounds: normal S1, normal S2 and + murmur Vessels: no JVD Extremities: + AV fistula; no edema Musculoskeletal: Extremities: no cyanosis and no clubbing Skin: normal turgor; no lesions Neurologic: Motor/Sensory: no tremor and no asterixis Psychiatric: Orientation: alert and oriented x 3 Results & Data ([facility]) Vital Signs (Past 12 Hours) Vital Signs Temp Pulse Pulse Resp BP BP Pulse Ox 09/29/20 11:18 36.6 C 100 H 23 146/60 H 95 09/29/20 10:30 99 H 23 117/53 L 88 L 09/29/20 10:15 100 H 21 114/52 L 90 09/29/20 10:00 103 H 24 110/52 L 88 L 09/29/20 09:45 106 H 27 H 119/52 L 89 L 09/29/20 09:30 106 H 28 H 117/48 L 92 09/29/20 09:15 104 H 23 101/47 L 93 09/29/20 09:00 107 H 22 103/55 L 88 L 09/29/20 08:45 109 H 38 H 117/52 L 90 09/29/20 08:30 109 H 29 H 126/63 89 L 09/29/20 08:15 105 H 26 H 134/55 L 93 09/29/20 08:00 100 H 31 H 147/70 H 94 09/29/20 07:46 92 H 34 H 148/90 H 92 09/29/20 07:31 88 20 97 09/29/20 07:15 85 28 H 142/74 H 96 09/29/20 07:08 86 30 H 98 09/29/20 07:00 89 36 H 144/77 H 94 09/29/20 06:45 86 28 H 157/68 H 95 09/29/20 06:40 88 33 H 149/69 H 93 09/29/20 06:38 32 H 93 09/29/20 06:36 30 H 88 L 09/29/20 06:34 37.6 C H 89 20 147/68 H 86 L Laboratory Results Laboratory Results - last 24 hr 09/29/20 09/29/20 09/29/20 06:40 06:40 06:40 WBC 3.47 L RBC 3.40 L Hgb 10.4 L Hct 31.9 L MCV 93.8 MCH 30.6 MCHC 32.6 RDW Std Deviation 56.3 H RDW Coeff of Anny 16.3 H Plt Count 108 L MPV 11.4 H Immature Gran % (Auto) 0.0 Neut % (Auto) 78.9 Lymph % (Auto) 15.9 [place] % (Auto) 4.9 Eos % (Auto) 0.3 Baso % (Auto) 0.0 Neut # (Auto) 2.74 Lymph # (Auto) 0.55 L [place] # (Auto) 0.17 Eos # (Auto) 0.01 Baso # (Auto) 0.00 Immature Gran # (Auto) 0.00 D-Dimer 880 H* VBG pH VBG pCO2 VBG pO2 VBG HCO3 VBG O2 Saturation VBG Base Excess Barometric Pressure Sodium 135 L Potassium 3.4 L Chloride 94 L Carbon Dioxide 27 Anion Gap 14.0 H BUN 37 H Creatinine 8.50 H* Est Cr Clr Drug Dosing 11.0 Est GFR ( Amer) 6.9 Est GFR (Non-Af Amer) 6.0 BUN/Creatinine Ratio 4.4 L Glucose 208 H POC Glucose Calcium 7.4 L Phosphorus 4.1 Magnesium 1.7 L Total Bilirubin 0.4 Direct Bilirubin 0.1 AST 35 ALT 22 Alkaline Phosphatase 80 Total Creatine Kinase 278 Troponin I 0.088 H* NT-Pro-B Natriuret Pep 8318 H Total Protein 6.9 Albumin 2.9 L Globulin 4.0 Albumin/Globulin Ratio 0.7 L Lipase 128 Procalcitonin Blood Type Antibody Screen 09/29/20 09/29/20 09/29/20 07:25 07:29 10:16 WBC RBC Hgb Hct MCV MCH MCHC RDW Std Deviation RDW Coeff of Anny Plt Count MPV Immature Gran % (Auto) Neut % (Auto) Lymph % (Auto) [place] % (Auto) Eos % (Auto) Baso % (Auto) Neut # (Auto) Lymph # (Auto) [place] # (Auto) Eos # (Auto) Baso # (Auto) Immature Gran # (Auto) D-Dimer VBG pH 7.46 H VBG pCO2 43 VBG pO2 41 VBG HCO3 29 VBG O2 Saturation 76.3 VBG Base Excess 5.0 Barometric Pressure 736.5 Sodium Potassium Chloride Carbon Dioxide Anion Gap BUN Creatinine Est Cr Clr Drug Dosing Est GFR ( Amer) Est GFR (Non-Af Amer) BUN/Creatinine Ratio Glucose POC Glucose Calcium Phosphorus Magnesium Total Bilirubin Direct Bilirubin AST ALT Alkaline Phosphatase Total Creatine Kinase Troponin I NT-Pro-B Natriuret Pep Total Protein Albumin Globulin Albumin/Globulin Ratio Lipase Procalcitonin Cancelled Blood Type O Positive Antibody Screen NEGATIVE 09/29/20 09/29/20 09/29/20 10:48 11:47 11:48 WBC RBC Hgb Hct MCV MCH MCHC RDW Std Deviation RDW Coeff of Anny Plt Count MPV Immature Gran % (Auto) Neut % (Auto) Lymph % (Auto) [place] % (Auto) Eos % (Auto) Baso % (Auto) Neut # (Auto) Lymph # (Auto) [place] # (Auto) Eos # (Auto) Baso # (Auto) Immature Gran # (Auto) D-Dimer VBG pH VBG pCO2 VBG pO2 VBG HCO3 VBG O2 Saturation VBG Base Excess Barometric Pressure Sodium Potassium Chloride Carbon Dioxide Anion Gap BUN Creatinine Est Cr Clr Drug Dosing Est GFR ( Amer) Est GFR (Non-Af Amer) BUN/Creatinine Ratio Glucose POC Glucose Pending Pending Calcium Phosphorus Magnesium Total Bilirubin Direct Bilirubin AST ALT Alkaline Phosphatase Total Creatine Kinase Troponin I NT-Pro-B Natriuret Pep Total Protein Albumin Globulin Albumin/Globulin Ratio Lipase Procalcitonin Pending Blood Type Antibody Screen PG Care Time/CCT Total # of Minutes Spent Total Time Spent with Patient: Total time spent is greater than 50% in coordination of care (as documented) at patient's floor/unit and/or counseling patient: Coding Level of Care Code 50637 Inpt Consult Level 4 Diagnoses End stage renal disease on dialysis N18.6; Z99.2 Pneumonia due to COVID-19 virus U07.1; J12.82 Anemia D64.9
[2020-09-29] MEDS ORDERED: INSULIN GLARGINE SOLOSTAR 100 UNITS/ML 3 ML PEN SC SCH (11:45)
[2020-09-29] MEDS: ALBUT/IPRATROP 3MG/0.5MG NEB 3 ML VIAL NEB SCH ×2 (11:47→15:17)
[2020-09-29] MEDS: SEVELAMER HCL 800 MG TABLET PO SCH ×2 (13:19→17:53)
[2020-09-29] MEDS ORDERED: DEXTROSE 50% 50 ML SYRINGE IV PRN (13:30)
[2020-09-29] MEDS ORDERED: GLUCOSE 40% GEL 15 GM TUBE PO PRN (13:30)
[2020-09-29] MEDS ORDERED: CARBOHYDRATES FOR HYPOGLYCEMIA PO PRN (13:30)
[2020-09-29] MEDS ORDERED: GLUCAGON FOR INJ 1 MG VIAL IM PRN (13:30)
[2020-09-29] MEDS ORDERED: GLUCOSE 10 TABS/TUBE PO PRN (13:30)
[2020-09-29] MEDS ORDERED: SEVELAMER HCL 800 MG TABLET PO SCH (14:00)
[2020-09-29] MEDS: DOXYCYCLINE HYCLATE 100 MG CAP PO SCH ×2 (14:49→20:54)
[2020-09-29] MEDS: HEPARIN SOD 5,000 UNIT/0.5 ML VIAL SQ SCH ×2 (14:51→20:54)
[2020-09-29] MEDS: cefTRIAXone SODIUM 2,000 MG in DEXTROSE 5% 50 ML IV SCH (15:45)
[2020-09-29] MEDS: ALBUTEROL HFA 8 GM INHALER INH SCH ×2 (15:57→19:17)
[2020-09-29] MEDS: IPRATROPIUM BROMIDE HFA INHALER INH SCH ×2 (15:58→19:16)
[2020-09-29] MEDS ORDERED: SEVERE STRESS LEVEL ONE (15:59)
[2020-09-29] MEDS ORDERED: INSULIN PROTOCOL GOAL RANGE ONE (15:59)
[2020-09-29] MEDS ORDERED: DC ALL PREVIOUSLY ORDERED DIABETES MEDS ONE (15:59)
[2020-09-29] MEDS ORDERED: INSULIN HUMAN REGULAR PER UNIT 3.5 UNITS in SYRINGE 3.465 ML IV ONE (17:00)
[2020-09-29] MEDS ORDERED: INSULIN REGULAR 250 UNITS in SODIUM CHLORIDE 0.9% 247.5 ML IV SCH (17:00)
[2020-09-29 17:05] LABS: Base Excess VBG 0.4 mEq/L; Oxygen Saturation VBG 74.8 %; pH VBG 7.36 (7.36-7.41)
[2020-09-29 17:34] LABS: Thyroid Stimulating Hormone 1.45 uIu/ml (0.300-4.500); Troponin I 0.051 ng/ml (0-0.045)
[2020-09-29] MEDS: INSULIN ASPART 100 UNITS/ML 3 ML PEN SC SCH ×2 (17:51→20:53)
[2020-09-29] MEDS ORDERED: BUMETANIDE 2 MG in SYRINGE 0 ML IV ONE (18:30)
[2020-09-29] MEDS: guaiFENesin 600 MG TABCR PO SCH (20:52)
[2020-09-29] MEDS: cloNIDine HCL 0.1 MG TAB PO SCH (20:53)
--- NOTE | 2020-09-30 05:54 | Electrocardiogram Report ---
Test Reason : Blood Pressure : / mmHG Vent. Rate : 089 BPM Atrial Rate : 089 BPM P-R Int : 150 ms QRS Dur : 086 ms QT Int : 400 ms P-R-T Axes : 025 000 073 degrees QTc Int : 486 ms Normal sinus rhythm Possible Left atrial enlargement Nonspecific ST abnormality Prolonged QT Abnormal ECG No previous ECGs available Confirmed by Guru Wren ([id number]) on 09/30/2020 5:53:55 AM Referred By: REFERRED SELF Confirmed By:Guru Wren
[2020-09-30] MEDS: HEPARIN SOD 5,000 UNIT/0.5 ML VIAL SQ SCH ×3 (06:02→20:24)
[2020-09-30 06:52] LABS: Hematocrit (blood only) 34.8 % (42-52); Hemoglobin 11.2 g/dL (14.0-18.0); Immature Granulocytes # (auto) 0.01 K/uL (0.00-0.02); Immature Granulocytes % (auto) 0.1 %; Lymphocytes # (auto) 0.48 K/uL (1.2-3.4); Lymphocytes % (auto) 6.2 %; Mean Corpuscular Hemoglobin 29.9 pg (25-34); Mean Corpuscular Hgb Conc 32.2 g/dL (32-36); Mean Platelet Volume 11.5 fL (7.4-10.4); Monocytes # (auto) 0.26 K/uL (0.11-0.59); Monocytes % (auto) 3.4 %; Neutrophils % (auto) 90.3 %; Platelet Count 147 K/uL (130-400); RDW Coefficient of Variation 16.3 % (11.5-14.5); RDW Standard Deviation 56.1 fL (36.4-46.3); Red Blood Count 3.74 M/uL (4.7-6.1); White Blood Count 7.75 K/uL (4.8-10.8)
[2020-09-30] MEDS ORDERED: SODIUM CHLORIDE 0.9% 1000ML 1,000 ML IV PRN (07:00)
[2020-09-30] MEDS ORDERED: HEPARIN SOD (PORCINE) 1000 UNIT/ML IV ONE (07:00)
[2020-09-30] MEDS: ALBUTEROL HFA 8 GM INHALER INH SCH ×4 (07:29→19:41)
[2020-09-30] MEDS: IPRATROPIUM BROMIDE HFA INHALER INH SCH ×4 (07:29→19:42)
[2020-09-30 07:44] LABS: BUN Creatinine Ratio 4.8 (10-20); Calcium 8.1 mg/dl (8.5-10.1); Creatinine Clr Calc Pharmacy 11.6 ml/min; Est GFR (African American) 8.9; Est GFR (Non-African American) 7.7; Magnesium 2.2 mg/dl (1.8-2.4)
[2020-09-30] MEDS: INSULIN ASPART 100 UNITS/ML 3 ML PEN SC SCH ×5 (08:10→20:00)
[2020-09-30] MEDS: INSULIN GLARGINE SOLOSTAR 100 UNITS/ML 3 ML PEN SC SCH ×2 (08:45→20:00)
[2020-09-30] MEDS: SEVELAMER HCL 800 MG TABLET PO SCH ×3 (08:46→17:20)
[2020-09-30] MEDS: dexAMETHasone 6 MG in SYRINGE 0 ML IV SCH (08:47)
[2020-09-30] MEDS: cloNIDine HCL 0.1 MG TAB PO SCH ×2 (08:47→20:24)
[2020-09-30] MEDS: guaiFENesin 600 MG TABCR PO SCH ×2 (08:48→20:24)
[2020-09-30] MEDS: DOXYCYCLINE HYCLATE 100 MG CAP PO SCH ×2 (08:48→20:24)
[2020-09-30] MEDS: NEPHROCAPS PO SCH (08:48)
[2020-09-30] MEDS: PANTOprazole 40 MG TAB PO SCH (08:48)
[2020-09-30] MEDS ORDERED: DEXAMETHASONE SOD INJ 10 MG/ML VIAL IV SCH (09:00)
[2020-09-30 09:28] LABS: Potassium 4.1 mmol/L (3.5-5.1)
[2020-09-30] MEDS: HEPARIN SOD (PORCINE) 1000 UNIT/ML IV SCH ×2 (09:47→09:48)
[2020-09-30] MEDS: ACETAMINOPHEN 325 MG TAB PO PRN ×2 (09:57→20:30)
--- NOTE | 2020-09-30 12:33 | Nephrology Progress Note ---
Date of Service September 30, 2020 Assessment & Plan (1) End stage renal disease on dialysis: Completed emergent HD yesterday for UF 2 L. Additional HD today for UF, as tolerated. Clearance acceptable. Qb at goal. Volume status acceptable. Medications are appropriately dosed for kidney function. Document I/O's and daily AM weight. Repeat metabolic profile tomorrow AM. Typical Rx: 3.5 hrs @ Qb 450 on 180 optiflux. EDW 89.5 (2) Pneumonia due to COVID-19 virus: Conv plasma given yesterday. Dexamethasone per hospitalist service. Remdesivir deferred due to kidney dysfunction. (3) Anemia: Chronic, stable. Hgb >10. Maintained on Micera as outpatient. No changes at this time. Admission and Anticipated Discharge Date Admission Date: September 29, 2020 Subjective I did not personally see Eliezer this AM but I did speak to him on the phone. I spoke to the HD nurse. Dialysis was coordinated. Emergent HD treatment completed yesterday afternoon without complications. Net UF 2 L. Review of Systems Review of Systems: All systems reviewed & are unremarkable except as noted in HPI & below Physical Exam Physical Exam: Deferred due to COVID pandemic Results & Data ([facility]) Vital Signs (Past 12 Hours) Vital Signs Temp Pulse Pulse Pulse Resp BP BP 09/30/20 12:20 85 117/69 09/30/20 12:00 85 106/65 09/30/20 11:40 90 112/61 09/30/20 11:20 86 119/64 09/30/20 11:17 88 12 09/30/20 11:00 89 120/61 09/30/20 10:40 88 127/70 09/30/20 10:20 91 H 113/72 09/30/20 10:11 89 125/72 09/30/20 09:40 94 H 124/71 09/30/20 09:31 86 121/92 09/30/20 09:15 36.5 C 91 H 09/30/20 07:41 89 20 146/70 H 09/30/20 07:31 89 09/30/20 07:21 88 09/30/20 04:05 36.5 C 79 16 09/30/20 03:32 78 20 Pulse Ox 09/30/20 12:20 09/30/20 12:00 09/30/20 11:40 02/16/21 11:20 09/30/20 11:17 94 09/30/20 11:00 09/30/20 10:40 09/30/20 10:20 09/30/20 10:11 09/30/20 09:40 09/30/20 09:31 09/30/20 09:15 09/30/20 07:41 89 L 09/30/20 07:31 93 09/30/20 07:21 09/30/20 04:05 97 09/30/20 03:32 96 Laboratory Results Laboratory Results - last 24 hr 09/29/20 09/29/20 09/29/20 10:16 15:29 16:26 WBC RBC Hgb Hct MCV MCH MCHC RDW Std Deviation RDW Coeff of Anny Plt Count MPV Immature Gran % (Auto) Neut % (Auto) Lymph % (Auto) [place] % (Auto) Eos % (Auto) Baso % (Auto) Neut # (Auto) Lymph # (Auto) [place] # (Auto) Eos # (Auto) Baso # (Auto) Immature Gran # (Auto) VBG pH VBG pCO2 VBG pO2 VBG HCO3 VBG O2 Saturation VBG Base Excess Barometric Pressure Sodium Potassium Chloride Carbon Dioxide Anion Gap BUN Creatinine Est Cr Clr Drug Dosing Est GFR ( Amer) Est GFR (Non-Af Amer) BUN/Creatinine Ratio Glucose POC Glucose 436 H* 464 H* Calcium Magnesium Troponin I TSH Nasal Screen MRSA (PCR) Blood Type O Positive Antibody Screen NEGATIVE 09/29/20 09/29/20 09/29/20 16:44 16:45 18:07 WBC RBC Hgb Hct MCV MCH MCHC RDW Std Deviation RDW Coeff of Anny Plt Count MPV Immature Gran % (Auto) Neut % (Auto) Lymph % (Auto) [place] % (Auto) Eos % (Auto) Baso % (Auto) Neut # (Auto) Lymph # (Auto) [place] # (Auto) Eos # (Auto) Baso # (Auto) Immature Gran # (Auto) VBG pH 7.36 VBG pCO2 48 VBG pO2 42 VBG HCO3 26 VBG O2 Saturation 74.8 VBG Base Excess 0.4 Barometric Pressure 733.7 Sodium Potassium Chloride Carbon Dioxide Anion Gap BUN Creatinine Est Cr Clr Drug Dosing Est GFR ( Amer) Est GFR (Non-Af Amer) BUN/Creatinine Ratio Glucose POC Glucose 404 H* Calcium Magnesium Troponin I 0.051 H* TSH 1.450 Nasal Screen MRSA (PCR) Blood Type Antibody Screen 09/29/20 09/29/20 09/29/20 18:08 19:08 19:59 WBC RBC Hgb Hct MCV MCH MCHC RDW Std Deviation RDW Coeff of Anny Plt Count MPV Immature Gran % (Auto) Neut % (Auto) Lymph % (Auto) [place] % (Auto) Eos % (Auto) Baso % (Auto) Neut # (Auto) Lymph # (Auto) [place] # (Auto) Eos # (Auto) Baso # (Auto) Immature Gran # (Auto) VBG pH VBG pCO2 VBG pO2 VBG HCO3 VBG O2 Saturation VBG Base Excess Barometric Pressure Sodium Potassium Chloride Carbon Dioxide Anion Gap BUN Creatinine Est Cr Clr Drug Dosing Est GFR ( Amer) Est GFR (Non-Af Amer) BUN/Creatinine Ratio Glucose POC Glucose 390 H* 344 H* 328 H* Calcium Magnesium Troponin I TSH Nasal Screen MRSA (PCR) Blood Type Antibody Screen 09/29/20 09/29/20 09/29/20 20:52 22:07 23:10 WBC RBC Hgb Hct MCV MCH MCHC RDW Std Deviation RDW Coeff of Anny Plt Count MPV Immature Gran % (Auto) Neut % (Auto) Lymph % (Auto) [place] % (Auto) Eos % (Auto) Baso % (Auto) Neut # (Auto) Lymph # (Auto) [place] # (Auto) Eos # (Auto) Baso # (Auto) Immature Gran # (Auto) VBG pH VBG pCO2 VBG pO2 VBG HCO3 VBG O2 Saturation VBG Base Excess Barometric Pressure Sodium Potassium Chloride Carbon Dioxide Anion Gap BUN Creatinine Est Cr Clr Drug Dosing Est GFR ( Amer) Est GFR (Non-Af Amer) BUN/Creatinine Ratio Glucose POC Glucose 291 H 153 H 143 H Calcium Magnesium Troponin I TSH Nasal Screen MRSA (PCR) Blood Type Antibody Screen 09/29/20 09/29/20 09/30/20 23:56 Unknown 00:57 WBC RBC Hgb Hct MCV MCH MCHC RDW Std Deviation RDW Coeff of Anny Plt Count MPV Immature Gran % (Auto) Neut % (Auto) Lymph % (Auto) [place] % (Auto) Eos % (Auto) Baso % (Auto) Neut # (Auto) Lymph # (Auto) [place] # (Auto) Eos # (Auto) Baso # (Auto) Immature Gran # (Auto) VBG pH VBG pCO2 VBG pO2 VBG HCO3 VBG O2 Saturation VBG Base Excess Barometric Pressure Sodium Potassium Chloride Carbon Dioxide Anion Gap BUN Creatinine Est Cr Clr Drug Dosing Est GFR ( Amer) Est GFR (Non-Af Amer) BUN/Creatinine Ratio Glucose POC Glucose 128 H 112 H Calcium Magnesium Troponin I TSH Nasal Screen MRSA (PCR) Negative Blood Type Antibody Screen 09/30/20 09/30/20 09/30/20 01:56 02:15 02:58 WBC RBC Hgb Hct MCV MCH MCHC RDW Std Deviation RDW Coeff of Anny Plt Count MPV Immature Gran % (Auto) Neut % (Auto) Lymph % (Auto) [place] % (Auto) Eos % (Auto) Baso % (Auto) Neut # (Auto) Lymph # (Auto) [place] # (Auto) Eos # (Auto) Baso # (Auto) Immature Gran # (Auto) VBG pH VBG pCO2 VBG pO2 VBG HCO3 VBG O2 Saturation VBG Base Excess Barometric Pressure Sodium Potassium Chloride Carbon Dioxide Anion Gap BUN Creatinine Est Cr Clr Drug Dosing Est GFR ( Amer) Est GFR (Non-Af Amer) BUN/Creatinine Ratio Glucose POC Glucose 87 140 H 134 H Calcium Magnesium Troponin I TSH Nasal Screen MRSA (PCR) Blood Type Antibody Screen 09/30/20 09/30/20 09/30/20 04:00 04:23 04:42 WBC RBC Hgb Hct MCV MCH MCHC RDW Std Deviation RDW Coeff of Anny Plt Count MPV Immature Gran % (Auto) Neut % (Auto) Lymph % (Auto) [place] % (Auto) Eos % (Auto) Baso % (Auto) Neut # (Auto) Lymph # (Auto) [place] # (Auto) Eos # (Auto) Baso # (Auto) Immature Gran # (Auto) VBG pH VBG pCO2 VBG pO2 VBG HCO3 VBG O2 Saturation VBG Base Excess Barometric Pressure Sodium Potassium Chloride Carbon Dioxide Anion Gap BUN Creatinine Est Cr Clr Drug Dosing Est GFR ( Amer) Est GFR (Non-Af Amer) BUN/Creatinine Ratio Glucose POC Glucose 100 H 94 98 Calcium Magnesium Troponin I TSH Nasal Screen MRSA (PCR) Blood Type Antibody Screen 09/30/20 09/30/20 09/30/20 05:08 05:59 06:16 WBC 7.75 RBC 3.74 L Hgb 11.2 L Hct 34.8 L MCV 93.0 MCH 29.9 MCHC 32.2 RDW Std Deviation 56.1 H RDW Coeff of Anny 16.3 H Plt Count 147 MPV 11.5 H Immature Gran % (Auto) 0.1 Neut % (Auto) 90.3 Lymph % (Auto) 6.2 [place] % (Auto) 3.4 Eos % (Auto) 0.0 Baso % (Auto) 0.0 Neut # (Auto) 7.00 H Lymph # (Auto) 0.48 L [place] # (Auto) 0.26 Eos # (Auto) 0.00 Baso # (Auto) 0.00 Immature Gran # (Auto) 0.01 VBG pH VBG pCO2 VBG pO2 VBG HCO3 VBG O2 Saturation VBG Base Excess Barometric Pressure Sodium Potassium Chloride Carbon Dioxide Anion Gap BUN Creatinine Est Cr Clr Drug Dosing Est GFR ( Amer) Est GFR (Non-Af Amer) BUN/Creatinine Ratio Glucose POC Glucose 103 H 115 H Calcium Magnesium Troponin I TSH Nasal Screen MRSA (PCR) Blood Type Antibody Screen 09/30/20 09/30/20 09/30/20 06:16 06:56 07:40 WBC RBC Hgb Hct MCV MCH MCHC RDW Std Deviation RDW Coeff of Anny Plt Count MPV Immature Gran % (Auto) Neut % (Auto) Lymph % (Auto) [place] % (Auto) Eos % (Auto) Baso % (Auto) Neut # (Auto) Lymph # (Auto) [place] # (Auto) Eos # (Auto) Baso # (Auto) Immature Gran # (Auto) VBG pH VBG pCO2 VBG pO2 VBG HCO3 VBG O2 Saturation VBG Base Excess Barometric Pressure Sodium 141 Potassium 4.1 D Chloride 104 Carbon Dioxide 28 Anion Gap 9.0 BUN 33 H Creatinine 6.91 H* D Est Cr Clr Drug Dosing 11.6 Est GFR ( Amer) 8.9 Est GFR (Non-Af Amer) 7.7 BUN/Creatinine Ratio 4.8 L Glucose 108 H POC Glucose 119 H 122 H Calcium 8.1 L Magnesium 2.2 Troponin I TSH Nasal Screen MRSA (PCR) Blood Type Antibody Screen PG Care Time/CCT Total # of Minutes Spent Total Time Spent with Patient: Total time spent is greater than 50% in coordination of care (as documented) at patient's floor/unit and/or counseling patient: Coding Level of Care Code 55887 Subseq Hosp Care Lvl 3 Diagnoses End stage renal disease on dialysis N18.6; Z99.2 Pneumonia due to COVID-19 virus U07.1; J12.82 Anemia D64.9
[2020-09-30] MEDS: cefTRIAXone SODIUM 2,000 MG in DEXTROSE 5% 50 ML IV SCH (12:59)
--- NOTE | 2020-09-30 13:43 | Hospitalist Progress Note ---
Date of Service September 30, 2020 Assessment & Plan (1) Pneumonia due to COVID-19 virus: Severe disease. s/p decadron x 10mg in ER at admission. Complete decadron course - 9 additional days of 6mg qd starting today. s/p convalescent plasma 09/29. He did receive 1 dose of the COVID-19 vaccine right before getting ill but unfortunately is likely not producing an antibody response to the vaccine for another week or so. Unfortunately he is NOT a candidate for remdesivir given his ESRD. Cont pulm toilet. Self-proning encouraged. Flutter valve. Bronchodilators. wean HFNC as tolerated. (2) Acute respiratory failure with hypoxia: IMPROVED today. 2nd to severe COVID-19 pneumonia +/- small element of volume overload in setting of ESRD. His procalcitonin did come back elevated. Due to slight chance that he has bacterial superinfection cont rocephin 2gm daily and doxy 100mg BID. Repeat procal in am. VTE is not suspected; defer on CTA chest. Wean HFNC as tolerated. (3) Pancytopenia: Likely 2nd to bone marrow suppression from COVID-19. WBC count and platelets are improved today. CBC in am. CKD/ESRD likely contributes to anemia as well. (4) Diabetes mellitus: Due to steroid initiation for COVID-19 his BSGs were markedly elevated. Placed on insulin drip yesterday; weaned off overnight due to normal BSGs. Restart lantus BID and novolog SC. Novolog - correction 20, carb ratio 1:6. Adjust as needed. (5) HTN (hypertension): BPs soft at time of admission. Hold lasix. Hold hydralazine. Hold amlodipine. Cont clonidine to prevent rebound. As BPs climb re-institute his BP meds as needed. (6) End stage renal disease on dialysis: M/W/F schedule as outpatient - dialyzes in [place]. Primary energy efficiency finance manager is Dr Choe. Appreciate Dr Montoya's assistance. 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 s/p HD yesterday PM and again today. Volume status today looks appropriate. (7) Hypokalemia: replaced and resolved (8) Hypomagnesemia: replaced and resolved (9) Anxiety: could consider low-dose benzo like xanax 0.25mg prn but hold off for now (10) Elevated troponin: likely myocardial demand ischemia in setting of acute resp failure from COVID-19 pneumonia (11) DVT prophylaxis: given high risk of VTE w/ COVID- heparin 7500 units TID extensively updated by phone this evening once again will ultimately need PT/OT Admission and Anticipated Discharge Date Admission Date: September 29, 2020 Subjective patient feeling fair this am. appetite ok/not robust. breathing is improved. still coughing -- dry. s/p urgent HD last night -- 2000cc removed. remained on HFNC following such last night but FiO2 is weaned today. he offers no new complaints. he asks multiple times "am I going to make it?" telemetry wnl today and overnight. receiving HD again this am with goal of 1500 of ultrafiltrate. Review of Systems Constitutional: + fatigue and + anorexia; no fever and no chills Respiratory: + cough; no wheezing Cardiovascular: no chest pain Gastrointestinal: no abdominal pain, no nausea and no diarrhea/loose stools Physical Exam Constitutional: no acute distress and no altered mental status looks much better today ENMT: external ear and nose normal, oropharynx normal Respiratory: Auscultation: + crackles (Bases) and + wheezes (Resolved) Cardiovascular: Rate/Rhythm: regular rhythm Heart Sounds: normal S1 and normal S2; no murmur Vessels: posterior tibial pulses present and dorsalis pedis pulses present; no JVD Extremities: + AV fistula (RUE - with bruit); no edema Gastrointestinal (Abdomen): Inspection/Auscultation: + abdomen distended (states this is chronic ) Percussion/Palpation: abdomen soft and + hernia (umbilical - reducible ); abdomen nontender and no hepatosplenomegaly Skin: no rashes, warm and dry Neurologic: moves all extremities Psychiatric: Orientation: alert and oriented x 3 Affect: + anxious affect Results & Data Results & Data ([facility]) Vital Signs (Past 12 Hours) Vital Signs Temp Pulse Pulse Pulse Resp BP BP 09/30/20 13:35 09/30/20 12:49 36.5 C 89 129/6 L 09/30/20 12:32 86 114/64 09/30/20 12:20 85 117/69 09/30/20 12:00 85 106/65 09/30/20 11:40 90 112/61 09/30/20 11:20 86 119/64 09/30/20 11:17 88 12 09/30/20 11:00 89 120/61 09/30/20 10:40 88 127/70 09/30/20 10:20 91 H 113/72 09/30/20 10:11 89 125/72 09/30/20 09:40 94 H 124/71 09/30/20 09:31 86 121/92 09/30/20 09:15 36.5 C 91 H 09/30/20 07:41 89 20 146/70 H 09/30/20 07:31 89 09/30/20 07:21 88 09/30/20 04:05 36.5 C 79 16 09/30/20 03:32 78 20 Pulse Ox Pulse Ox 09/30/20 13:35 90 09/30/20 12:49 09/30/20 12:32 09/30/20 12:20 09/30/20 12:00 09/30/20 11:40 09/30/20 11:20 09/30/20 11:17 94 09/30/20 11:00 09/30/20 10:40 09/30/20 10:20 09/30/20 10:11 09/30/20 09:40 09/30/20 09:31 09/30/20 09:15 09/30/20 07:41 89 L 09/30/20 07:31 93 09/30/20 07:21 09/30/20 04:05 97 09/30/20 03:32 96 Laboratory Results Laboratory Results - last 24 hr 09/29/20 09/29/20 09/29/20 10:16 15:29 16:26 WBC RBC Hgb Hct MCV MCH MCHC RDW Std Deviation RDW Coeff of Anny Plt Count MPV Immature Gran % (Auto) Neut % (Auto) Lymph % (Auto) [place] % (Auto) Eos % (Auto) Baso % (Auto) Neut # (Auto) Lymph # (Auto) [place] # (Auto) Eos # (Auto) Baso # (Auto) Immature Gran # (Auto) VBG pH VBG pCO2 VBG pO2 VBG HCO3 VBG O2 Saturation VBG Base Excess Barometric Pressure Sodium Potassium Chloride Carbon Dioxide Anion Gap BUN Creatinine Est Cr Clr Drug Dosing Est GFR ( Amer) Est GFR (Non-Af Amer) BUN/Creatinine Ratio Glucose POC Glucose 436 H* 464 H* Calcium Magnesium Troponin I TSH Nasal Screen MRSA (PCR) Blood Type O Positive Antibody Screen NEGATIVE 09/29/20 09/29/20 09/29/20 16:44 16:45 18:07 WBC RBC Hgb Hct MCV MCH MCHC RDW Std Deviation RDW Coeff of Anny Plt Count MPV Immature Gran % (Auto) Neut % (Auto) Lymph % (Auto) [place] % (Auto) Eos % (Auto) Baso % (Auto) Neut # (Auto) Lymph # (Auto) [place] # (Auto) Eos # (Auto) Baso # (Auto) Immature Gran # (Auto) VBG pH 7.36 VBG pCO2 48 VBG pO2 42 VBG HCO3 26 VBG O2 Saturation 74.8 VBG Base Excess 0.4 Barometric Pressure 733.7 Sodium Potassium Chloride Carbon Dioxide Anion Gap BUN Creatinine Est Cr Clr Drug Dosing Est GFR ( Amer) Est GFR (Non-Af Amer) BUN/Creatinine Ratio Glucose POC Glucose 404 H* Calcium Magnesium Troponin I 0.051 H* TSH 1.450 Nasal Screen MRSA (PCR) Blood Type Antibody Screen 09/29/20 09/29/20 09/29/20 18:08 19:08 19:59 WBC RBC Hgb Hct MCV MCH MCHC RDW Std Deviation RDW Coeff of Anny Plt Count MPV Immature Gran % (Auto) Neut % (Auto) Lymph % (Auto) [place] % (Auto) Eos % (Auto) Baso % (Auto) Neut # (Auto) Lymph # (Auto) [place] # (Auto) Eos # (Auto) Baso # (Auto) Immature Gran # (Auto) VBG pH VBG pCO2 VBG pO2 VBG HCO3 VBG O2 Saturation VBG Base Excess Barometric Pressure Sodium Potassium Chloride Carbon Dioxide Anion Gap BUN Creatinine Est Cr Clr Drug Dosing Est GFR ( Amer) Est GFR (Non-Af Amer) BUN/Creatinine Ratio Glucose POC Glucose 390 H* 344 H* 328 H* Calcium Magnesium Troponin I TSH Nasal Screen MRSA (PCR) Blood Type Antibody Screen 09/29/20 09/29/20 09/29/20 20:52 22:07 23:10 WBC RBC Hgb Hct MCV MCH MCHC RDW Std Deviation RDW Coeff of Anny Plt Count MPV Immature Gran % (Auto) Neut % (Auto) Lymph % (Auto) [place] % (Auto) Eos % (Auto) Baso % (Auto) Neut # (Auto) Lymph # (Auto) [place] # (Auto) Eos # (Auto) Baso # (Auto) Immature Gran # (Auto) VBG pH VBG pCO2 VBG pO2 VBG HCO3 VBG O2 Saturation VBG Base Excess Barometric Pressure Sodium Potassium Chloride Carbon Dioxide Anion Gap BUN Creatinine Est Cr Clr Drug Dosing Est GFR ( Amer) Est GFR (Non-Af Amer) BUN/Creatinine Ratio Glucose POC Glucose 291 H 153 H 143 H Calcium Magnesium Troponin I TSH Nasal Screen MRSA (PCR) Blood Type Antibody Screen 09/29/20 09/29/20 09/30/20 23:56 Unknown 00:57 WBC RBC Hgb Hct MCV MCH MCHC RDW Std Deviation RDW Coeff of Anny Plt Count MPV Immature Gran % (Auto) Neut % (Auto) Lymph % (Auto) [place] % (Auto) Eos % (Auto) Baso % (Auto) Neut # (Auto) Lymph # (Auto) [place] # (Auto) Eos # (Auto) Baso # (Auto) Immature Gran # (Auto) VBG pH VBG pCO2 VBG pO2 VBG HCO3 VBG O2 Saturation VBG Base Excess Barometric Pressure Sodium Potassium Chloride Carbon Dioxide Anion Gap BUN Creatinine Est Cr Clr Drug Dosing Est GFR ( Amer) Est GFR (Non-Af Amer) BUN/Creatinine Ratio Glucose POC Glucose 128 H 112 H Calcium Magnesium Troponin I TSH Nasal Screen MRSA (PCR) Negative Blood Type Antibody Screen 09/30/20 09/30/20 09/30/20 01:56 02:15 02:58 WBC RBC Hgb Hct MCV MCH MCHC RDW Std Deviation RDW Coeff of Anny Plt Count MPV Immature Gran % (Auto) Neut % (Auto) Lymph % (Auto) [place] % (Auto) Eos % (Auto) Baso % (Auto) Neut # (Auto) Lymph # (Auto) [place] # (Auto) Eos # (Auto) Baso # (Auto) Immature Gran # (Auto) VBG pH VBG pCO2 VBG pO2 VBG HCO3 VBG O2 Saturation VBG Base Excess Barometric Pressure Sodium Potassium Chloride Carbon Dioxide Anion Gap BUN Creatinine Est Cr Clr Drug Dosing Est GFR ( Amer) Est GFR (Non-Af Amer) BUN/Creatinine Ratio Glucose POC Glucose 87 140 H 134 H Calcium Magnesium Troponin I TSH Nasal Screen MRSA (PCR) Blood Type Antibody Screen 09/30/20 09/30/20 09/30/20 04:00 04:23 04:42 WBC RBC Hgb Hct MCV MCH MCHC RDW Std Deviation RDW Coeff of Anny Plt Count MPV Immature Gran % (Auto) Neut % (Auto) Lymph % (Auto) [place] % (Auto) Eos % (Auto) Baso % (Auto) Neut # (Auto) Lymph # (Auto) [place] # (Auto) Eos # (Auto) Baso # (Auto) Immature Gran # (Auto) VBG pH VBG pCO2 VBG pO2 VBG HCO3 VBG O2 Saturation VBG Base Excess Barometric Pressure Sodium Potassium Chloride Carbon Dioxide Anion Gap BUN Creatinine Est Cr Clr Drug Dosing Est GFR ( Amer) Est GFR (Non-Af Amer) BUN/Creatinine Ratio Glucose POC Glucose 100 H 94 98 Calcium Magnesium Troponin I TSH Nasal Screen MRSA (PCR) Blood Type Antibody Screen 09/30/20 09/30/20 09/30/20 05:08 05:59 06:16 WBC 7.75 RBC 3.74 L Hgb 11.2 L Hct 34.8 L MCV 93.0 MCH 29.9 MCHC 32.2 RDW Std Deviation 56.1 H RDW Coeff of Anny 16.3 H Plt Count 147 MPV 11.5 H Immature Gran % (Auto) 0.1 Neut % (Auto) 90.3 Lymph % (Auto) 6.2 [place] % (Auto) 3.4 Eos % (Auto) 0.0 Baso % (Auto) 0.0 Neut # (Auto) 7.00 H Lymph # (Auto) 0.48 L [place] # (Auto) 0.26 Eos # (Auto) 0.00 Baso # (Auto) 0.00 Immature Gran # (Auto) 0.01 VBG pH VBG pCO2 VBG pO2 VBG HCO3 VBG O2 Saturation VBG Base Excess Barometric Pressure Sodium Potassium Chloride Carbon Dioxide Anion Gap BUN Creatinine Est Cr Clr Drug Dosing Est GFR ( Amer) Est GFR (Non-Af Amer) BUN/Creatinine Ratio Glucose POC Glucose 103 H 115 H Calcium Magnesium Troponin I TSH Nasal Screen MRSA (PCR) Blood Type Antibody Screen 09/30/20 09/30/20 09/30/20 06:16 06:56 07:40 WBC RBC Hgb Hct MCV MCH MCHC RDW Std Deviation RDW Coeff of Anny Plt Count MPV Immature Gran % (Auto) Neut % (Auto) Lymph % (Auto) [place] % (Auto) Eos % (Auto) Baso % (Auto) Neut # (Auto) Lymph # (Auto) [place] # (Auto) Eos # (Auto) Baso # (Auto) Immature Gran # (Auto) VBG pH VBG pCO2 VBG pO2 VBG HCO3 VBG O2 Saturation VBG Base Excess Barometric Pressure Sodium 141 Potassium 4.1 D Chloride 104 Carbon Dioxide 28 Anion Gap 9.0 BUN 33 H Creatinine 6.91 H* D Est Cr Clr Drug Dosing 11.6 Est GFR ( Amer) 8.9 Est GFR (Non-Af Amer) 7.7 BUN/Creatinine Ratio 4.8 L Glucose 108 H POC Glucose 119 H 122 H Calcium 8.1 L Magnesium 2.2 Troponin I TSH Nasal Screen MRSA (PCR) Blood Type Antibody Screen 09/30/20 12:52 WBC RBC Hgb Hct MCV MCH MCHC RDW Std Deviation RDW Coeff of Anny Plt Count MPV Immature Gran % (Auto) Neut % (Auto) Lymph % (Auto) [place] % (Auto) Eos % (Auto) Baso % (Auto) Neut # (Auto) Lymph # (Auto) [place] # (Auto) Eos # (Auto) Baso # (Auto) Immature Gran # (Auto) VBG pH VBG pCO2 VBG pO2 VBG HCO3 VBG O2 Saturation VBG Base Excess Barometric Pressure Sodium Potassium Chloride Carbon Dioxide Anion Gap BUN Creatinine Est Cr Clr Drug Dosing Est GFR ( Amer) Est GFR (Non-Af Amer) BUN/Creatinine Ratio Glucose POC Glucose 122 H Calcium Magnesium Troponin I TSH Nasal Screen MRSA (PCR) Blood Type Antibody Screen PG Care Time/CCT Total # of Minutes Spent Total Time Spent with Patient: Total time spent is greater than 50% in coordination of care (as documented) at patient's floor/unit and/or counseling patient: Coding Level of Care Code 58996 Subseq Hosp Care Lvl 3 Diagnoses Pneumonia due to COVID-19 virus U07.1; J12.82 Acute respiratory failure with hypoxia J96.01 Pancytopenia D61.818 Diabetes mellitus E11.9 HTN (hypertension) I10 End stage renal disease on dialysis N18.6; Z99.2 Hypokalemia E87.6 Hypomagnesemia E83.42 Anxiety F41.9 Elevated troponin R77.8 DVT prophylaxis Z29.9
[2020-10-01] MEDS: HEPARIN SOD 5,000 UNIT/0.5 ML VIAL SQ SCH ×3 (05:56→21:11)
[2020-10-01] MEDS: ALBUTEROL HFA 8 GM INHALER INH SCH ×4 (07:19→19:41)
[2020-10-01] MEDS: IPRATROPIUM BROMIDE HFA INHALER INH SCH ×4 (07:19→19:40)
[2020-10-01 08:09] LABS: Hematocrit (blood only) 33.8 % (42-52); Hemoglobin 10.9 g/dL (14.0-18.0); Mean Corpuscular Hemoglobin 30.8 pg (25-34); Mean Corpuscular Hgb Conc 32.2 g/dL (32-36); Mean Corpuscular Volume 95.5 fL (80-100); Mean Platelet Volume 10.8 fL (7.4-10.4); Platelet Count 181 K/uL (130-400); RDW Coefficient of Variation 16.3 % (11.5-14.5); RDW Standard Deviation 57.1 fL (36.4-46.3); Red Blood Count 3.54 M/uL (4.7-6.1); White Blood Count 6.59 K/uL (4.8-10.8)
[2020-10-01] MEDS: dexAMETHasone 6 MG in SYRINGE 0 ML IV SCH (08:16)
[2020-10-01] MEDS: DOXYCYCLINE HYCLATE 100 MG CAP PO SCH ×2 (08:16→21:11)
[2020-10-01] MEDS: guaiFENesin 600 MG TABCR PO SCH ×2 (08:16→21:11)
[2020-10-01] MEDS: NEPHROCAPS PO SCH (08:17)
[2020-10-01] MEDS: PANTOprazole 40 MG TAB PO SCH (08:17)
[2020-10-01] MEDS: SEVELAMER HCL 800 MG TABLET PO SCH ×3 (08:17→17:49)
[2020-10-01] MEDS: cloNIDine HCL 0.1 MG TAB PO SCH ×2 (08:17→22:07)
[2020-10-01] MEDS: INSULIN GLARGINE SOLOSTAR 100 UNITS/ML 3 ML PEN SC SCH ×2 (08:19→20:36)
[2020-10-01] MEDS: INSULIN ASPART 100 UNITS/ML 3 ML PEN SC SCH ×4 (08:19→20:37)
[2020-10-01] MEDS: ACETAMINOPHEN 325 MG TAB PO PRN ×2 (08:32→21:16)
[2020-10-01 08:43] LABS: BUN Creatinine Ratio 6.8 (10-20); Calcium 8.7 mg/dl (8.5-10.1); Creatinine Clr Calc Pharmacy 13.8 ml/min; Est GFR (African American) 11.5; Est GFR (Non-African American) 9.9; Potassium 4.1 mmol/L (3.5-5.1)
--- NOTE | 2020-10-01 10:17 | Nephrology Progress Note ---
Date of Service October 01, 2020 Assessment & Plan (1) End stage renal disease on dialysis: HD treatments completed on 09/29 and 09/30 for net UF 3.5 L. Clearance acceptable. Volume controlled. Medications are appropriately dosed for kidney function. Anticipate next HD tomorrow AM. Document I/O's and daily AM weight. Repeat metabolic profile tomorrow AM. Typical Rx: 3.5 hrs @ Qb 450 on 180 optiflux. Outpatient EDW 89.5 kg. Weight documented at 82.5 kg this AM as inpatient. (2) Pneumonia due to COVID-19 virus: Conv plasma provided on admission. Dexamethasone per hospitalist service. Remdesivir deferred due to kidney dysfunction. (3) Anemia: Chronic, stable. Hgb >10. Maintained on Micera as outpatient. No changes at this time. Admission and Anticipated Discharge Date Admission Date: September 29, 2020 Subjective No acute events overnight. Review of Systems Review of Systems: All systems reviewed & are unremarkable except as noted in HPI & below Physical Exam Physical Exam: Deferred due to COVID Results & Data ([facility]) Vital Signs (Past 12 Hours) Vital Signs Temp Pulse Pulse Pulse Resp BP Pulse Ox 10/01/20 09:00 72 10/01/20 07:32 37.3 C 86 24 104/67 89 L 10/01/20 07:24 82 20 90 10/01/20 07:22 82 90 10/01/20 04:10 69 18 95 10/01/20 03:52 37 C 87 18 146/79 H 93 10/01/20 01:42 74 09/30/20 23:26 37 C 82 20 136/77 94 Laboratory Results Laboratory Results - last 24 hr 09/30/20 09/30/20 09/30/20 12:52 16:15 19:54 WBC RBC Hgb Hct MCV MCH MCHC RDW Std Deviation RDW Coeff of Anny Plt Count MPV Sodium Potassium Chloride Carbon Dioxide Anion Gap BUN Creatinine Est Cr Clr Drug Dosing Est GFR ( Amer) Est GFR (Non-Af Amer) BUN/Creatinine Ratio Glucose POC Glucose 122 H 231 H 274 H Calcium Procalcitonin 10/01/20 10/01/20 10/01/20 07:36 07:39 07:39 WBC 6.59 RBC 3.54 L Hgb 10.9 L Hct 33.8 L MCV 95.5 MCH 30.8 MCHC 32.2 RDW Std Deviation 57.1 H RDW Coeff of Anny 16.3 H Plt Count 181 MPV 10.8 H Sodium 136 Potassium 4.1 Chloride 100 Carbon Dioxide 26 Anion Gap 10.0 BUN 38 H Creatinine 5.57 H* D Est Cr Clr Drug Dosing 13.8 Est GFR ( Amer) 11.5 Est GFR (Non-Af Amer) 9.9 BUN/Creatinine Ratio 6.8 L Glucose 128 H POC Glucose 138 H Calcium 8.7 Procalcitonin 10/01/20 07:39 WBC RBC Hgb Hct MCV MCH MCHC RDW Std Deviation RDW Coeff of Anny Plt Count MPV Sodium Potassium Chloride Carbon Dioxide Anion Gap BUN Creatinine Est Cr Clr Drug Dosing Est GFR ( Amer) Est GFR (Non-Af Amer) BUN/Creatinine Ratio Glucose POC Glucose Calcium Procalcitonin 3.41 H PG Care Time/CCT Total # of Minutes Spent Total Time Spent with Patient: Total time spent is greater than 50% in coordina tion of care (as documented) at patient's floor/unit and/or counseling patient: Coding Level of Care Code 36354 Subseq Hosp Care Lvl 3 Diagnoses End stage renal disease on dialysis N18.6; Z99.2 Pneumonia due to COVID-19 virus U07.1; J12.82 Anemia D64.9
[2020-10-01] MEDS: cefTRIAXone SODIUM 2,000 MG in DEXTROSE 5% 50 ML IV SCH (13:07)
--- NOTE | 2020-10-01 13:43 | Hospitalist Progress Note ---
Date of Service October 01, 2020 Assessment & Plan (1) Pneumonia due to COVID-19 virus: Severe disease, requiring high flow NC at first continue dexamethasone 6mg IV daily, day 3 today s/p convalescent plasma 09/29. He did receive 1 dose of the COVID-19 vaccine right before getting ill but un fortunately is likely not producing an antibody response to the vaccine for another week or so. Unfortunately he is NOT a candidate for remdesivir given his ESRD. weaned down to 4L wall high flow today, feeling great, continue to titrate as tolerated discussed that will want him on room air prior to discharge (2) Acute respiratory failure with hypoxia: vastly improved, down to 4L wall high flow 2nd to severe COVID-19 pneumonia +/- small element of volume overload in setting of ESRD. His procalcitonin did come back elevated. Due to slight chance that he has bacterial superinfection cont rocephin 2gm daily and doxy 100mg BID. had 3.5L of UF with HD, keeping lungs dry likely helping oxygenation (3) Pancytopenia: Likely 2nd to bone marrow suppression from COVID-19. WBC count and platelets are improving CBC in am. CKD/ESRD likely contributes to anemia as well. (4) Diabetes mellitus: Due to steroid initiation for COVID-19 his BSGs were markedly elevated. Placed on insulin drip 09/29; weaned off overnight due to normal BSGs. Restart lantus BID and novolog SC. Novolog - correction 20, carb ratio 1:6. Adjust as needed, sugars better today (5) HTN (hypertension): BPs soft at time of admission. continue to Hold lasix. Hold hydralazine. Hold amlodipine. Cont clonidine to prevent rebound. SBP 131 today (6) End stage renal disease on dialysis: M/W/F schedule as outpatient - dialyzes in [place]. Primary president finance company is Dr Choe. Appreciate Dr Montoya's assistance. 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 HD on 09/29 and 09/30 with 3.5L of UF will need to change to Sat schedule with [facility] for COVID patients plan for HD tomorrow (7) Hypokalemia: replaced and resolved (8) Hypomagnesemia: replaced and resolved (9) Anxiety: resolved, feels very calm today (10) Elevated troponin: likely myocardial demand ischemia in setting of acute resp failure from COVID-19 pneumonia (11) DVT prophylaxis: given high risk of VTE w/ COVID- heparin 7500 units TID will ultimately need PT/OT Admission and Anticipated Discharge Date Admission Date: September 29, 2020 Subjective patient feeling great, walking around the room, no dyspnea at rest or on exertion, minimal cough eating well, all his food, no nausea or diarrhea no fever/chills, no sweats, no weakness, wants to go home as soon as he can no HD today reviewed labs, stable discussed that if he is stable and off oxygen Tuesday can likely go home Review of Systems Review of Systems: All systems reviewed & are unremarkable except as noted in Subjective Physical Exam Constitutional: WD/WN, vitals as above Neck: trachea midline, no thyromegaly Respiratory: normal respiratory effort, lungs clear to auscultation Cardiovascular: RRR, no murmur, no edema Gastrointestinal (Abdomen): normal bowel sounds, soft, nontender, no hepatosplenomegaly Musculoskeletal: no cyanosis or clubbing, extremities motor strength 5/5 Skin: no rashes, warm and dry Neurologic: patellar DTR's 2+ bilat, sensation intact and PERRL, EOMI, accommodation nl, no face palsy, no dysarthria Psychiatric: A+Ox3, euthymic affect Lymphatic: no cervical or axillary lymphadenopathy Results & Data Results & Data ([facility]) Vital Signs (Past 12 Hours) Vital Signs Temp Pulse Pulse Pulse Resp BP Pulse Ox 10/01/20 11:51 36.8 C 80 20 131/63 94 10/01/20 11:19 83 20 94 10/01/20 11:17 78 20 94 10/01/20 09:00 72 10/01/20 07:32 37.3 C 86 24 104/67 89 L 10/01/20 07:24 82 20 90 10/01/20 07:22 82 90 10/01/20 04:10 69 18 95 10/01/20 03:52 37 C 87 18 146/79 H 93 Laboratory Results Laboratory Results - last 24 hr 09/30/20 09/30/20 10/01/20 16:15 19:54 07:36 WBC RBC Hgb Hct MCV MCH MCHC RDW Std Deviation RDW Coeff of Anny Plt Count MPV Sodium Potassium Chloride Carbon Dioxide Anion Gap BUN Creatinine Est Cr Clr Drug Dosing Est GFR ( Amer) Est GFR (Non-Af Amer) BUN/Creatinine Ratio Glucose POC Glucose 231 H 274 H 138 H Calcium Procalcitonin 10/01/20 10/01/20 10/01/20 07:39 07:39 07:39 WBC 6.59 RBC 3.54 L Hgb 10.9 L Hct 33.8 L MCV 95.5 MCH 30.8 MCHC 32.2 RDW Std Deviation 57.1 H RDW Coeff of Anny 16.3 H Plt Count 181 MPV 10.8 H Sodium 136 Potassium 4.1 Chloride 100 Carbon Dioxide 26 Anion Gap 10.0 BUN 38 H Creatinine 5.57 H* D Est Cr Clr Drug Dosing 13.8 Est GFR ( Amer) 11.5 Est GFR (Non-Af Amer) 9.9 BUN/Creatinine Ratio 6.8 L Glucose 128 H POC Glucose Calcium 8.7 Procalcitonin 3.41 H 10/01/20 11:49 WBC RBC Hgb Hct MCV MCH MCHC RDW Std Deviation RDW Coeff of Anny Plt Count MPV Sodium Potassium Chloride Carbon Dioxide Anion Gap BUN Creatinine Est Cr Clr Drug Dosing Est GFR ( Amer) Est GFR (Non-Af Amer) BUN/Creatinine Ratio Glucose POC Glucose 118 H Calcium Procalcitonin Medications Administered Current Inpatient Medications Acetaminophen (Acetaminophen 325 Mg Tab) 650 mg PO Q4H PRN PRN Reason: Pain or Fever Stop: 10/29/20 11:24 Last Admin: 10/01/20 08:32 Dose: 650 mg Documented by: Albuterol (Albuterol Hfa 8 Gm Inhaler) 1 puffs INH QIDR [facility] Stop: 10/29/20 18:59 Last Admin: 10/01/20 15:20 Dose: 1 puffs Documented by: Benzonatate (Benzonatate 100 Mg Capsule) 100 mg PO Q8H PRN PRN Reason: Cough Stop: 10/29/20 11:29 Clonidine HCl (Clonidine Hcl 0.1 Mg Tab) 0.1 mg PO BID [facility] Stop: 10/29/20 20:59 Last Admin: 10/01/20 08:17 Dose: 0.1 mg Documented by: Dextrose (Dextrose 50% 50 Ml Syringe) 25 - 50 ml IV UD PRN; Protocol PRN Reason: Hypoglycemia Protocol Stop: 10/29/20 13:29 Last Admin: 09/30/20 02:01 Dose: 25 ml Documented by: Doxycycline Hyclate (Doxycycline Hyclate 100 Mg Cap) 100 mg PO BID [facility] Stop: 10/06/20 13:59 Last Admin: 10/01/20 08:16 Dose: 100 mg Documented by: Glucagon (Glucagon For Inj 1 Mg Vial) 1 mg IM UD PRN; Protocol PRN Reason: Hypoglycemia Protocol Stop: 10/29/20 13:29 Glucose (Glucose 40% Gel 15 Gm Tube) 15 - 30 gm PO UD PRN; Protocol PRN Reason: Hypoglycemia Protocol Stop: 10/29/20 13:29 Glucose (Glucose 10 Tabs/Tube) 4 - 8 tabs PO UD PRN; Protocol PRN Reason: Hypoglycemia Protocol Stop: 10/29/20 13:29 Guaifenesin (Guaifenesin 600 Mg Tabcr) 1,200 mg PO Q12 [facility] Stop: 10/29/20 20:59 Last Admin: 10/01/20 08:16 Dose: 1,200 mg Documented by: Heparin Sodium (Porcine) (Heparin Sod 5,000 Unit/0.5 Ml Vial) 7,500 units SQ Q8 [facility] Stop: 10/29/20 13:59 Last Admin: 10/01/20 13:07 Dose: 7,500 units Documented by: Dexamethasone Sodium Phosphate (6 mg/ Syringe) 1.5 mls @ 1 mls/min IV DAILY [facility] Stop: 10/08/20 09:02 Last Admin: 10/01/20 08:16 Dose: 1 mls/min Documented by: Ceftriaxone Sodium 2,000 mg/ (Dextrose) 70 mls @ 100 mls/hr IV DAILY@1400 [facility]; Protocol Stop: 10/06/20 13:59 Last Infusion: 10/01/20 13:59 Dose: Infused Documented by: Insulin Aspart (Insulin Aspart 100 Units/Ml 3 Ml Pen) 0 units SC ACHS [facility] Stop: 10/30/20 07:59 Last Admin: 10/01/20 13:02 Dose: 10 units Documented by: Insulin Glargine (Insulin Glargine Solostar 100 Units/Ml 3 Ml Pen) 18 units SC BID [facility] Stop: 10/31/20 08:59 Last Admin: 10/01/20 08:19 Dose: 18 units Documented by: Ipratropium [place] (Ipratropium [place] Hfa Inhaler) 1 puffs INH QIDR [facility] Stop: 10/29/20 18:59 Last Admin: 10/01/20 15:20 Dose: 1 puffs Documented by: Miscellaneous (Carbohydrates For Hypoglycemia ) 15 - 30 gm PO UD PRN PRN Reason: Hypoglycemia Treatment Stop: 10/29/20 13:29 Ondansetron HCl (Ondansetron Inj 2 Mg/Ml 2 Ml Vial) 4 mg IV Q6H PRN PRN Reason: Nausea Stop: 10/29/20 11:29 Last Admin: 09/30/20 20:31 Dose: 4 mg Documented by: Pantoprazole Sodium (Pantoprazole 40 Mg Tab) 40 mg PO DAILY [facility] Stop: 10/30/20 08:59 Last Admin: 10/01/20 08:17 Dose: 40 mg Documented by: Sevelamer HCl (Sevelamer Hcl 800 Mg Tablet) 1,600 mg PO AC [facility] Stop: 10/29/20 13:19 Last Admin: 10/01/20 12:22 Dose: 1,600 mg Documented by: Vitamin B Complex/Folic Acid (Nephrocaps) 1 cap PO DAILY [facility] Stop: 10/30/20 08:59 Last Admin: 10/01/20 08:17 Dose: 1 cap Documented by: PG Care Time/CCT Total # of Minutes Spent Total Time Spent with Patient: Total time spent is greater than 50% in coordination of care (as documented) at patient's floor/unit and/or counseling patient: Coding Level of Care Code 27199 Subseq Hosp Care Lvl 3 Diagnoses Pneumonia due to COVID-19 virus U07.1; J12.82 Acute respiratory failure with hypoxia J96.01 Pancytopenia D61.818 Diabetes mellitus E11.9 HTN (hypertension) I10 End stage renal disease on dialysis N18.6; Z99.2 Hypokalemia E87.6 Hypomagnesemia E83.42 Anxiety F41.9 Elevated troponin R77.8 DVT prophylaxis Z29.9
[2020-10-02] MEDS: HEPARIN SOD 5,000 UNIT/0.5 ML VIAL SQ SCH ×3 (05:52→21:29)
[2020-10-02 06:17] LABS: Hematocrit (blood only) 33.3 % (42-52); Hemoglobin 10.7 g/dL (14.0-18.0)
[2020-10-02 06:56] LABS: Albumin Level 2.7 gm/dl (3.4-5.0); BUN Creatinine Ratio 9.1 (10-20); Calcium 8.3 mg/dl (8.5-10.1); Creatinine Clr Calc Pharmacy 11.1 ml/min; Est GFR (African American) 8.8; Est GFR (Non-African American) 7.6; Phosphorus 3.4 mg/dl (2.5-4.9); Potassium 4.4 mmol/L (3.5-5.1)
[2020-10-02] MEDS ORDERED: HEPARIN IV BOLUS 2,000 UNITS in SYRINGE 0 ML IV SCH (07:00)
[2020-10-02] MEDS ORDERED: SODIUM CHLORIDE 0.9% 1000ML 1,000 ML IV PRN (07:00)
[2020-10-02] MEDS: IPRATROPIUM BROMIDE HFA INHALER INH SCH ×4 (07:11→19:41)
[2020-10-02] MEDS: ALBUTEROL HFA 8 GM INHALER INH SCH ×4 (07:11→19:42)
[2020-10-02] MEDS: cloNIDine HCL 0.1 MG TAB PO SCH ×2 (08:17→21:25)
[2020-10-02] MEDS: PANTOprazole 40 MG TAB PO SCH (08:18)
[2020-10-02] MEDS: guaiFENesin 600 MG TABCR PO SCH ×2 (08:18→21:24)
[2020-10-02] MEDS: NEPHROCAPS PO SCH (08:18)
[2020-10-02] MEDS: SEVELAMER HCL 800 MG TABLET PO SCH ×3 (08:18→16:17)
[2020-10-02] MEDS: dexAMETHasone 6 MG in SYRINGE 0 ML IV SCH (08:19)
[2020-10-02] MEDS: DOXYCYCLINE HYCLATE 100 MG CAP PO SCH ×2 (08:26→21:25)
[2020-10-02] MEDS: INSULIN ASPART 100 UNITS/ML 3 ML PEN SC SCH ×4 (09:46→21:20)
--- NOTE | 2020-10-02 09:51 | Hospitalist Progress Note ---
Date of Service October 02, 2020 Assessment & Plan (1) Pneumonia due to COVID-19 virus: Severe disease, requiring high flow NC at first continue dexamethasone 6mg IV daily, day 4 today s/p convalescent plasma 09/29. He did receive 1 dose of the COVID-19 vaccine right before getting ill but un fortunately is likely not producing an antibody response to the vaccine for another week or so. he is not a candidate for Remdesivir given his ESRD. weaned down to 2L NC today, feeling great, continue to titrate as tolerated will get 2 step today, plan to go home tomorrow morning, can try to arrange for oxygen today so there are no delays on discharge (2) Acute respiratory failure with hypoxia: vastly improved, down to 2L NC due to severe COVID-19 pneumonia +/- small element of volume overload in setting of ESRD. His procalcitonin did come back elevated. Due to slight chance that he has bacterial superinfection cont rocephin 2gm daily and doxy 100mg BID while here, no need for antibiotics on discharge had 3.5L of UF with HD, keeping lungs dry likely helping oxygenation plan for HD today with UF (3) Pancytopenia: Likely 2nd to bone marrow suppression from COVID-19. all counts are improving (4) Diabetes mellitus: Due to steroid initiation for COVID-19 his BSGs were markedly elevated. Placed on insulin drip 09/29; weaned off overnight due to normal BSGs. Restart lantus BID and novolog SC. Novolog - correction 20, carb ratio 1:6. mild hypoglycemia this morning, no symptoms, eating great, continue to follow closely (5) HTN (hypertension): BPs soft at time of admission, now going up to 140-160 systolic resume home medications Cont clonidine to prevent rebound. (6) End stage renal disease on dialysis: M/W/F schedule as outpatient - dialyzes in [place]. Primary accounting recruiter is Dr Choe. Appreciate Dr Montoya's assistance. 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 HD on 09/29 and 09/30 with 3.5L of UF will need to change to Sat schedule with [facility] for COVID patients plan for HD today and can then report to [place] on Tuesday (7) Hypokalemia: replaced and resolved, K is 4.4 today (8) Hypomagnesemia: replaced and resolved (9) Anxiety: getting anxious being here, encouraged him to hang in there, only 24 more hours (10) Elevated troponin: likely myocardial demand ischemia in setting of acute resp failure from COVID-19 pneumonia (11) DVT prophylaxis: given high risk of VTE w/ COVID- heparin 7500 units TID Admission and Anticipated Discharge Date Admission Date: September 29, 2020 Subjective patient doing a lot better, down to 2L, no distress, feels great even when walking really pressing to go home today, told him that he can go home tomorrow, need to get HD today and 2 step to arrange home oxygen no fever, no cough, no chest pain, no chills, no GI symptoms ate his entire breakfast called his to update her on plan Review of Systems Review of Systems: All systems reviewed & are unremarkable except as noted in Subjective Constitutional: no fever, no chills and no sweats Respiratory: no cough, no dyspnea and no dyspnea on exertion Cardiovascular: no chest pain and no edema Physical Exam Constitutional: WD/WN, vitals as above Neck: trachea midline, no thyromegaly Respiratory: normal respiratory effort, lungs clear to auscultation Cardiovascular: RRR, no murmur, no edema Gastrointestinal (Abdomen): normal bowel sounds, soft, nontender, no hepatosplenomegaly Musculoskeletal: no cyanosis or clubbing, extremities motor strength 5/5 Skin: no rashes, warm and dry Neurologic: patellar DTR's 2+ bilat, sensation intact and PERRL, EOMI, accommodation nl, no face palsy, no dysarthria Psychiatric: A+Ox3, euthymic affect Lymphatic: no cervical or axillary lymphadenopathy Results & Data Results & Data ([facility]) Vital Signs (Past 12 Hours) Vital Signs Temp Pulse Pulse Resp BP Pulse Ox 10/02/20 08:13 148/83 H 10/02/20 07:15 77 20 95 10/02/20 04:26 76 10/02/20 03:58 36.9 C 80 18 163/68 H 92 10/01/20 22:30 36.6 C 80 18 126/64 93 Laboratory Results Laboratory Results - last 24 hr 10/01/20 10/01/20 10/01/20 11:49 16:11 20:32 Hgb Hct Sodium Potassium Chloride Carbon Dioxide Anion Gap BUN Creatinine Est Cr Clr Drug Dosing Est GFR ( Amer) Est GFR (Non-Af Amer) BUN/Creatinine Ratio Glucose POC Glucose 118 H 179 H 166 H Calcium Phosphorus Albumin 10/02/20 10/02/20 10/02/20 05:57 05:57 08:16 Hgb 10.7 L Hct 33.3 L Sodium 135 L Potassium 4.4 Chloride 101 Carbon Dioxide 25 Anion Gap 10.0 BUN 63 H D Creatinine 6.98 H* D Est Cr Clr Drug Dosing 11.1 Est GFR ( Amer) 8.8 Est GFR (Non-Af Amer) 7.6 BUN/Creatinine Ratio 9.1 L Glucose 60 L POC Glucose 72 Calcium 8.3 L Phosphorus 3.4 Albumin 2.7 L Medications Administered Current Inpatient Medications Acetaminophen (Acetaminophen 325 Mg Tab) 650 mg PO Q4H PRN PRN Reason: Pain or Fever Stop: 10/29/20 11:24 Last Admin: 10/01/20 21:16 Dose: 650 mg Documented by: Albuterol (Albuterol Hfa 8 Gm Inhaler) 1 puffs INH QIDR [facility] Stop: 10/29/20 18:59 Last Admin: 10/02/20 07:11 Dose: 1 puffs Documented by: Benzonatate (Benzonatate 100 Mg Capsule) 100 mg PO Q8H PRN PRN Reason: Cough Stop: 10/29/20 11:29 Clonidine HCl (Clonidine Hcl 0.1 Mg Tab) 0.1 mg PO BID [facility] Stop: 10/29/20 20:59 Last Admin: 10/02/20 08:17 Dose: 0.1 mg Documented by: Dextrose (Dextrose 50% 50 Ml Syringe) 25 - 50 ml IV UD PRN; Protocol PRN Reason: Hypoglycemia Protocol Stop: 10/29/20 13:29 Last Admin: 09/30/20 02:01 Dose: 25 ml Documented by: Doxycycline Hyclate (Doxycycline Hyclate 100 Mg Cap) 100 mg PO BID [facility] Stop: 10/06/20 13:59 Last Admin: 10/02/20 08:26 Dose: 100 mg Documented by: Glucagon (Glucagon For Inj 1 Mg Vial) 1 mg IM UD PRN; Protocol PRN Reason: Hypoglycemia Protocol Stop: 10/29/20 13:29 Glucose (Glucose 40% Gel 15 Gm Tube) 15 - 30 gm PO UD PRN; Protocol PRN Reason: Hypoglycemia Protocol Stop: 10/29/20 13:29 Glucose (Glucose 10 Tabs/Tube) 4 - 8 tabs PO UD PRN; Protocol PRN Reason: Hypoglycemia Protocol Stop: 10/29/20 13:29 Guaifenesin (Guaifenesin 600 Mg Tabcr) 1,200 mg PO Q12 [facility] Stop: 10/29/20 20:59 Last Admin: 10/02/20 08:18 Dose: 1,200 mg Documented by: Heparin Sodium (Porcine) (Heparin Sod 5,000 Unit/0.5 Ml Vial) 7,500 units SQ Q8 [facility] Stop: 10/29/20 13:59 Last Admin: 10/02/20 05:52 Dose: Not Given Documented by: Dexamethasone Sodium Phosphate (6 mg/ Syringe) 1.5 mls @ 1 mls/min IV DAILY [facility] Stop: 10/08/20 09:02 Last Admin: 10/02/20 08:19 Dose: 1 mls/min Documented by: Ceftriaxone Sodium 2,000 mg/ (Dextrose) 70 mls @ 100 mls/hr IV DAILY@1400 [facility]; Protocol Stop: 10/06/20 13:59 Last Infusion: 10/01/20 13:59 Dose: Infused Documented by: Sodium Chloride (Nss 1000ml) 1,000 mls @ 0 mls/hr IV .Q0M PRN PRN Reason: For Hemodialysis Use ONLY Stop: 10/02/20 12:59 Heparin Sodium (Porcine) 2,000 (units/ Syringe) 2 mls @ 10 mls/min IV TODAY@0700 [facility] Stop: 10/02/20 23:59 Insulin Aspart (Insulin Aspart 100 Units/Ml 3 Ml Pen) 0 units SC ACHS [facility] Stop: 10/30/20 07:59 Last Admin: 10/02/20 09:46 Dose: Not Given Documented by: Insulin Glargine (Insulin Glargine Solostar 100 Units/Ml 3 Ml Pen) 18 units SC BID [facility] Stop: 10/31/20 08:59 Last Admin: 10/01/20 20:36 Dose: 18 units Documented by: Ipratropium [place] (Ipratropium [place] Hfa Inhaler) 1 puffs INH QIDR [facility] Stop: 10/29/20 18:59 Last Admin: 10/02/20 07:11 Dose: 1 puffs Documented by: Miscellaneous (Carbohydrates For Hypoglycemia ) 15 - 30 gm PO UD PRN PRN Reason: Hypoglycemia Treatment Stop: 10/29/20 13:29 Ondansetron HCl (Ondansetron Inj 2 Mg/Ml 2 Ml Vial) 4 mg IV Q6H PRN PRN Reason: Nausea Stop: 10/29/20 11:29 Last Admin: 09/30/20 20:31 Dose: 4 mg Documented by: Pantoprazole Sodium (Pantoprazole 40 Mg Tab) 40 mg PO DAILY [facility] Stop: 10/30/20 08:59 Last Admin: 10/02/20 08:18 Dose: 40 mg Documented by: Sevelamer HCl (Sevelamer Hcl 800 Mg Tablet) 1,600 mg PO AC [facility] Stop: 10/29/20 13:19 Last Admin: 10/02/20 08:18 Dose: 1,600 mg Documented by: Vitamin B Complex/Folic Acid (Nephrocaps) 1 cap PO DAILY [facility] Stop: 10/30/20 08:59 Last Admin: 10/02/20 08:18 Dose: 1 cap Documented by: PG Care Time/CCT Total # of Minutes Spent Total Time Spent with Patient: Total time spent is greater than 50% in coordination of care (as documented) at patient's floor/unit and/or counseling patient: Coding Level of Care Code 75514 Subseq Hosp Care Lvl 3 Diagnoses Pneumonia due to COVID-19 virus U07.1; J12.82 Acute respiratory failure with hypoxia J96.01 Pancytopenia D61.818 Diabetes mellitus E11.9 HTN (hypertension) I10 End stage renal disease on dialysis N18.6; Z99.2 Hypokalemia E87.6 Hypomagnesemia E83.42 Anxiety F41.9 Elevated troponin R77.8 DVT prophylaxis Z29.9
[2020-10-02] MEDS: INSULIN GLARGINE SOLOSTAR 100 UNITS/ML 3 ML PEN SC SCH ×2 (10:15→21:25)
--- NOTE | 2020-10-02 11:10 | Nephrology Progress Note ---
Date of Service October 02, 2020 Assessment & Plan (1) End stage renal disease on dialysis: HD today per TTS schedule. Orders entered into EMR and discussed with HD nurse. Will continue to challenge UF with treatment. Clearance acceptable. Medications are appropriately dosed for kidney function. Document I/O's and daily AM weight. Plan to resume HD at [facility] post discharge. Typical Rx: 3.5 hrs @ Qb 450 on 180 optiflux. Outpatient EDW 89.5 kg. Weight remains notably below EDW at this time. EDW adjusted accordingly. (2) Pneumonia due to COVID-19 virus: Conv plasma provided on admission. Dexamethasone per hospitalist service. Remdesivir deferred due to kidney dysfunction. (3) Anemia: Chronic, stable. Hgb >10. Maintained on Micera as outpatient. No changes at this time. Admission and Anticipated Discharge Date Admission Date: September 29, 2020 Subjective No acute events overnight. I discussed the plan of care with Dr. Narvaez this AM. Review of Systems Review of Systems: All systems reviewed & are unremarkable except as noted in HPI & below Physical Exam Physical Exam: Deferred due to COVID Results & Data ([facility]) Vital Signs (Past 12 Hours) Vital Signs Temp Pulse Pulse Resp BP Pulse Ox 10/02/20 10:48 77 20 93 10/02/20 08:13 148/83 H 10/02/20 07:15 77 20 95 10/02/20 04:26 76 10/02/20 03:58 36.9 C 80 18 163/68 H 92 Laboratory Results Laboratory Results - last 24 hr 10/01/20 10/01/20 10/01/20 11:49 16:11 20:32 Hgb Hct Sodium Potassium Chloride Carbon Dioxide Anion Gap BUN Creatinine Est Cr Clr Drug Dosing Est GFR ( Amer) Est GFR (Non-Af Amer) BUN/Creatinine Ratio Glucose POC Glucose 118 H 179 H 166 H Calcium Phosphorus Albumin 10/02/20 10/02/20 10/02/20 05:57 05:57 08:16 Hgb 10.7 L Hct 33.3 L Sodium 135 L Potassium 4.4 Chloride 101 Carbon Dioxide 25 Anion Gap 10.0 BUN 63 H D Creatinine 6.98 H* D Est Cr Clr Drug Dosing 11.1 Est GFR ( Amer) 8.8 Est GFR (Non-Af Amer) 7.6 BUN/Creatinine Ratio 9.1 L Glucose 60 L POC Glucose 72 Calcium 8.3 L Phosphorus 3.4 Albumin 2.7 L PG Care Time/CCT Total # of Minutes Spent Total Time Spent with Patient: Total time spent is greater than 50% in coordination of care (as documented) at patient's floor/unit and/or counseling patient: Coding Level of Care Code 52879 Subseq Hosp Care Lvl 3 Diagnoses End stage renal disease on dialysis N18.6; Z99.2 Pneumonia due to COVID-19 virus U07.1; J12.82 Anemia D64.9
[2020-10-02] MEDS: amLODIPine BESYLATE 5 MG TAB PO SCH (11:52)
[2020-10-02] MEDS: cefTRIAXone SODIUM 2,000 MG in DEXTROSE 5% 50 ML IV SCH (13:10)
[2020-10-02] MEDS: ACETAMINOPHEN 325 MG TAB PO PRN (16:16)
[2020-10-02] MEDS: FUROSEMIDE 40 MG TAB PO SCH (17:13)
[2020-10-02] MEDS: hydrALAZINE TAB 50 MG TAB PO SCH (21:25)
[2020-10-03] MEDS: HEPARIN SOD 5,000 UNIT/0.5 ML VIAL SQ SCH (05:23)
[2020-10-03 05:59] LABS: Hematocrit (blood only) 32.8 % (42-52); Hemoglobin 10.8 g/dL (14.0-18.0); Mean Corpuscular Hemoglobin 29.8 pg (25-34); Mean Corpuscular Hgb Conc 32.9 g/dL (32-36); Mean Corpuscular Volume 90.6 fL (80-100); Mean Platelet Volume 10.2 fL (7.4-10.4); Platelet Count 179 K/uL (130-400); RDW Coefficient of Variation 15.9 % (11.5-14.5); RDW Standard Deviation 53.3 fL (36.4-46.3); Red Blood Count 3.62 M/uL (4.7-6.1); White Blood Count 5.35 K/uL (4.8-10.8)
[2020-10-03 06:34] LABS: BUN Creatinine Ratio 8.4 (10-20); Calcium 8.3 mg/dl (8.5-10.1); Creatinine Clr Calc Pharmacy 15.6 ml/min; Est GFR (African American) 13.4; Est GFR (Non-African American) 11.6; Potassium 3.8 mmol/L (3.5-5.1)
[2020-10-03] MEDS: ALBUTEROL HFA 8 GM INHALER INH SCH (07:34)
[2020-10-03] MEDS: IPRATROPIUM BROMIDE HFA INHALER INH SCH (07:34)
[2020-10-03] MEDS: guaiFENesin 600 MG TABCR PO SCH (08:20)
[2020-10-03] MEDS: amLODIPine BESYLATE 5 MG TAB PO SCH (08:21)
[2020-10-03] MEDS: NEPHROCAPS PO SCH (08:22)
[2020-10-03] MEDS: SEVELAMER HCL 800 MG TABLET PO SCH (08:22)
[2020-10-03] MEDS: FUROSEMIDE 40 MG TAB PO SCH (08:22)
[2020-10-03] MEDS: hydrALAZINE TAB 50 MG TAB PO SCH (08:24)
[2020-10-03] MEDS: PANTOprazole 40 MG TAB PO SCH (08:25)
[2020-10-03] MEDS: DOXYCYCLINE HYCLATE 100 MG CAP PO SCH (08:25)
[2020-10-03] MEDS: cloNIDine HCL 0.1 MG TAB PO SCH (08:26)
[2020-10-03] MEDS: INSULIN GLARGINE SOLOSTAR 100 UNITS/ML 3 ML PEN SC SCH (08:27)
--- NOTE | 2020-10-03 08:34 | Discharge Summary ---
Date of Service October 03, 2020 Admission HPI Per Admitting Provider 65yo male with ESRD on HD x 2 years - secondary to long-standing T2DM with nephropathy - HTN, obesity, and T2DM presents with ongoing COVID-19 infection x 5-6 days. Patient states he was in his usual state of health up until coming down with COVID. On 09/22/2020 the patient received his first dose of COVID-19 vaccine. The day following the vaccination he developed fever to 101, diarrhea, fatigue, anorexia, and mild dry cough. His got sick with similar symptoms either just prior to him or about the same time but she did NOT receive the vaccine. The patient continued to feel poorly all last week. Temperatures continued to range 99-100 degrees. Dry cough remained, anorexia persisted, fatigue/malaise continued, and he also had myalgias. Has never had chest pain, abdominal pain, nausea, emesis, headache, ear pain, sore throat, nasal congestion, or loss of taste/smell. On Tuesday, 09/26, he went to an urgent care in [place] for COVID-19 testing. He found out later that night he was positive for COVID-19. He typically dialyzes on Tuesday/Tue/Tuesday but due to COVID-19 illness he dialyzed in [place] on Tuesday. He admits to drinking very little since his illness began. In the ER he was hypoxic to the 60s in room air. O2 sats improved to low 90s with oxymask. He amazingly did not have dyspnea during my visit. He admits to feeling very anxious about having COVID and asked several times "if he was going to make it." Principal Diagnosis COVID 19 pneumonia with acute hypoxic respiratory failure Discharge Exam Constitutional WD/WN, vitals as above Neck trachea midline, no thyromegaly Respiratory normal respiratory effort, lungs clear to auscultation Cardiovascular RRR, no murmur, no edema Gastrointestinal (Abdomen) normal bowel sounds, soft, nontender, no hepatosplenomegaly Musculoskeletal no cyanosis or clubbing, extremities motor strength 5/5 Skin no rashes, warm and dry Neurologic patellar DTR's 2+ bilat, sensation intact and PERRL, EOMI, accommodation nl, no face palsy, no dysarthria Psychiatric A+Ox3, euthymic affect Lymphatic no cervical or axillary lymphadenopathy Discharge Data Allergies Allergy/AdvReac Type Severity Reaction Status Date / Time No Known Drug Allergies Allergy Unknown Verified 09/29/20 06:51 Consultations 09/29/20 08:36 ED Decision to Admit Stat 09/29/20 11:15 Consult Nephrology Routine Hospital Course (1) Pneumonia due to COVID-19 virus: Severe disease, requiring high flow NC at first treated with dexamethasone 6mg IV daily, day 5 today s/p convalescent plasma 09/29. He did receive 1 dose of the COVID-19 vaccine right before getting ill but unfortunately is likely not producing an antibody response to the vaccine for another week or so. he is not a candidate for Remdesivir given his ESRD. weaned down to room air at rest, 1.5 L on exertion only, home oxygen arranged feeling great, no dyspnea plan: discharge to home, complete 4 more days of dexamethasone 6mg PO daily since he still needs some oxygen on exertion no longer needs to quarantine, more than 10 days from initial symptoms follow up with PCP (2) Acute respiratory failure with hypoxia: vastly improved, down to room air at rest and 1.5L on exertion discharge to home with portable oxygen for exertion anticipate coming off oxygen completely in next 7-10 days due to severe COVID-19 pneumonia +/- small element of volume overload in setting of ESRD. His procalcitonin did come back elevated. Due to slight chance that he has bacterial superinfection cont rocephin 2gm daily and doxy 100mg BID while here, no need for antibiotics on discharge (3) Pancytopenia: Likely 2nd to bone marrow suppression from COVID-19. all counts are improving (4) Diabetes mellitus: Due to steroid initiation for COVID-19 his BSGs were markedly elevated. Placed on insulin drip 09/29; weaned off overnight due to normal BSGs. treated with Lantus and Novolog while here some issues with hypoglycemia in the morning resume Tresiba Flex Touch on discharge (5) HTN (hypertension): BPs soft at time of admission, now going up to 140-160 systolic resume home medications (6) End stage renal disease on dialysis: M/W/ schedule as outpatient - dialyzes in [place]. Primary molder is Dr Choe. Appreciate Dr Montoya's assistance. 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 HD on 09/29 and 09/30 with 3.5L of UF will need to change to Sat schedule with [place] [facility] for COVID dennis nts had HD on 10/02 and can then report to [place] on Tuesday (7) Hypokalemia: replaced and resolved (8) Hypomagnesemia: replaced and resolved (9) Anxiety: getting anxious being here, encouraged him to hang in there, only 24 more hours (10) Elevated troponin: likely myocardial demand ischemia in setting of acute resp failure from COVID-19 pneumonia (11) DVT prophylaxis: given high risk of VTE w/ COVID- heparin 7500 units TID Total Time Total Time Spent Total Time Spent (In Minutes): 32 minutes Total Time Includes: Examination of the Patient, Discharge Planning, Medication Reconciliation and Communication With Other Providers Discharge Plan Discharge Items Patient Disposition: Home - Self-Care Reason For Visit: COVID-19 PNEUMONIA, ACUTE HYPOXIC RESPIRATORY FAIL Discharge Diagnosis: COVID 19 pneumonia Acute hypoxic respiratory failure ESRD on HD Condition on Discharge: Good Goals: complete several more days of dexamethasone continue with oxygen on exertion report for HD tomorrow in [place] Activity: Resume your previous activity Non-emergency contact: Primary Care Provider Call non-emergency contact if: you have any medication questions and your symptoms worsen Follow-up/Referrals: Tomy Cervantes [Primary Care Provider] - (one week, please call and schedule a follow up apt.) Diet: Carb Consistent or DM2 and Dialysis Renal Addtl Attending Provider Instructions: Medications: - DEXAMETHASONE: take 6mg daily for 4 more days, next dose is tomorrow morning COVID 19 pneumonia with acute hypoxemia responded quickly to steroids and volume removal with dialysis down to room air at rest and 1.5 L of oxygen with exertion, will deliver oxygen to your home complete 4 more days of dexamethasone at home to treat COVID you need to be isolated/quarantine 10 days from positive test report to [place] for dialysis tomorrow and will continue to go there until they tell you it is okay to return to [facility] no further antibiotics needed Pending Studies at Discharge: No Stand-Alone Forms: My [employer], Smoking Cessation Medications and DC Order Prescriptions: New dexamethasone 4 mg tablet 6 mg PO DAILY 4 Days Qty: 6 RF: 0 Continued Tresiba FlexTouch U-100 100 unit/mL (3 mL) insulin pen 14 unit SQ DAILY Qty: 15 RF: 3 sevelamer carbonate [Renvela] 800 mg tablet 800 mg PO TID RF: 0 amlodipine 10 mg tablet 10 mg PO DAILY RF: 0 clonidine HCl 0.1 mg tablet 0.1 mg PO BID RF: 0 Nephro-Duglas Rx 1-60-300 mg-mg-mcg tablet 1 tab PO DAILY RF: 0 pantoprazole 40 mg tablet,delayed release (DR/EC) 40 mg PO DAILY RF: 0 (DME) pen needle, diabetic [BD Ultra-Fine Katherin Pen Needle] 32 gauge x 5/32" needle See Dose Instructions .ROUTE .MEDSUPPLY Qty: 10 RF: 0 hydralazine 50 mg tablet 50 mg PO BID RF: 0 furosemide 40 mg tablet 40 mg PO BID RF: 0 Discharge Orders: Discharge Order (Routine); Ordered 10/03/20 Ordered By: Miguel Narvaez Admission Data Admit Date/Time: 09/29/20 10:08 Attending Provider: Miguel Narvaez Admit Provider: Benji Parrish Primary Care Provider: Tomy Cervantes Other Providers: Benji Parrish ; Bradley Montoya Other Interventions: Discharge Summary Assessment (RN) Last Done: 10/03/20 08:47 Coding Level of Care Code D/C Day Management >30 mins Diagnoses Pneumonia due to COVID-19 virus U07.1; J12.82 Acute respiratory failure with hypoxia J96.01 Pancytopenia D61.818 Diabetes mellitus E11.9 HTN (hypertension) I10 End stage renal disease on dialysis N18.6; Z99.2 Hypokalemia E87.6 Hypomagnesemia E83.42 Anxiety F41.9 Elevated troponin R77.8 DVT prophylaxis Z29.9
[2020-10-03] MEDS ORDERED: ALBUTEROL HFA 8 GM INHALER INH PRN (08:46)
[2020-10-03] MEDS ORDERED: IPRATROPIUM BROMIDE HFA INHALER INH PRN (08:46)
[2020-10-03] MEDS: INSULIN ASPART 100 UNITS/ML 3 ML PEN SC SCH (09:09)
== END 2020-10-03 09:30 | disposition home or self-care (01) | DRG 177 ==
LOC: ED 06:27 → 2E 10:08 → SUATTDRO 10:08 → 2E 11:01